=== PATIENT | male | born 1970 | race Caucasian/White ===

== ENCOUNTER 2019-06-04 15:13 | Outpatient (REF) | payer MEDICARE, BC, MEDICAID, SELFPAY ==
[2019-06-04 19:15] LABS: COMMENT (LAB VIEW ONLY) < 13.00 mg/dL
== END 2019-06-04 15:33 ==
LOC: LBN 15:13
PROVIDERS: PCP Internal Medicine; Visit Provider Internal Medicine
DX: I10 Essential (primary) hypertension (principal); E11.9 Type 2 diabetes mellitus without complications
CPT/HCPCS: 82043; 82570

== ENCOUNTER 2019-06-05 13:28 | Outpatient (REF) | payer MEDICARE, BC, MEDICAID, SELFPAY ==
[2019-06-05 14:01] LABS: HCT 47.9 % (40.0-50.0); HGB 15.8 g/dL (13.5-17.5)
[2019-06-05 14:38] LABS: Anion Gap 10.1 mmol/L (3-11); BUN 8 mg/dL (7-18); CO2 31.9 mmol/L (21.0-32.0); Calcium 8.7 mg/dL (8.5-10.1); Chloride 92 mmol/L (98-107); Cholesterol 141 mg/dL (50-200); Glucose 124 mg/dL (70-100); HDL Cholesterol 32 mg/dL (40-60); Magnesium 1.9 mg/dL (1.8-2.4); Potassium 4.1 mmol/L (3.5-5.1); Sodium 134 mmol/L (136-145); TSH 1.22 uIU/mL (0.36-3.74); Triglyceride 445 mg/dL (30-150)
[2019-06-05 15:01] LABS: LDL CHOLESTEROL 71 mg/dL (<100)
== END 2019-06-05 13:48 ==
LOC: LBN 13:28
PROVIDERS: PCP Internal Medicine; Visit Provider Internal Medicine
DX: E78.5 Hyperlipidemia, unspecified (principal); E11.9 Type 2 diabetes mellitus without complications; I42.9 Cardiomyopathy, unspecified; I10 Essential (primary) hypertension; E83.42 Hypomagnesemia; G47.33 Obstructive sleep apnea (adult) (pediatric); J98.9 Respiratory disorder, unspecified
CPT/HCPCS: 80048; 80061; 83721; 83735; 84443; 85014; 85018

== ENCOUNTER 2022-08-29 16:40 | Outpatient (REF) | payer MEDICARE, MEDICAID, SELFPAY ==
[2022-08-29 20:27] LABS: ALT 39 U/L (16-63); AST 28 U/L (15-37); Albumin 4.5 g/dL (3.4-5.0); Alkaline Phosphatase 109 U/L (46-116); Anion Gap 8.3 mmol/L (3-11); BUN 12 mg/dL (7-18); Bilirubin, Total 0.3 mg/dL (0.2-1.0); CO2 28.7 mmol/L (21.0-32.0); Calculated LDL 42 mg/dL (<100); Chloride 96 mmol/L (98-107); Cholesterol 137 mg/dL (<200); Glucose 137 mg/dL (74-106); HDL Cholesterol 40 mg/dL (40-60); Potassium 4.3 mmol/L (3.5-5.1); Sodium 133 mmol/L (136-145); TSH (W/Ref FT4) 1.56 uIU/mL (0.36-3.74); Total Protein 7.8 g/dL (6.4-8.2); Triglyceride 275 mg/dL (<150)
[2022-08-29 20:35] LABS: COMMENT (LAB VIEW ONLY) < 13.00 mg/dL
[2022-08-29 21:18] LABS: Hemoglobin A1C 6.6 % (<5.7)
== END 2022-08-29 16:41 | disposition home or self-care (01) ==
LOC: LBN 16:40
PROVIDERS: PCP Internal Medicine; Referring Provider Nurse Practitioner Adult Health; Visit Provider Nurse Practitioner Adult Health
DX: E11.9 Type 2 diabetes mellitus without complications (principal); E66.01 Morbid (severe) obesity due to excess calories; E78.5 Hyperlipidemia, unspecified; I10 Essential (primary) hypertension
CPT/HCPCS: 80053; 80061; 82043; 82570; 83036; 84443

== ENCOUNTER 2022-10-03 13:36 | Outpatient (REF) | payer MEDICARE, BC, MEDICAID, SELFPAY ==
[2022-10-03 15:43] LABS: Anion Gap 7.9 mmol/L (3-11); BUN 9 mg/dL (7-18); CO2 28.1 mmol/L (21.0-32.0); Calcium 8.9 mg/dL (8.5-10.1); Chloride 98 mmol/L (98-107); Glucose 111 mg/dL (74-106); NT-proBNP 29 pg/mL (<300); Potassium 3.9 mmol/L (3.5-5.1); Sodium 134 mmol/L (136-145)
== END 2022-10-03 13:37 | disposition home or self-care (01) ==
LOC: LBN 13:36
PROVIDERS: PCP Nurse Practitioner Adult Health; Referring Provider Nurse Practitioner Adult Health; Visit Provider Nurse Practitioner Adult Health
DX: G47.33 Obstructive sleep apnea (adult) (pediatric) (principal); R06.89 Other abnormalities of breathing; F32.89 Other specified depressive episodes; I42.8 Other cardiomyopathies
CPT/HCPCS: 80048; 83880

== ENCOUNTER 2022-12-12 11:12 | Emergency (ER) | payer MEDICARE, BC, MEDICAID, SELFPAY ==
[2022-12-12 11:32] VITALS: BP 136/75; PULSE 72; RESP 16; TEMP 36.8; O2SAT 96
[2022-12-12 12:02] VITALS: RESP 20
--- NOTE | 2022-12-12 12:15 | DI.RAD_ITS ---
Exam(s) XR LUMBAR SPINE COMPLETE EXAM: XR LUMBAR SPINE COMPLETE CLINICAL HISTORY: Back Pain. TECHNIQUE: 2D digital imaging was performed. Five views. COMPARISON: No exams were available for comparison FINDINGS: There is somewhat limited by patient body habitus. No evidence of fracture, spondylolysis or spondylolisthesis. The disc spaces are maintained. Endpla te osteophytes are present greater in the lower thoracic region. Facet degenerative changes are pres ent greatest at L4-5 and L5-S1. IMPRESSION: Degenerative changes. No acute abnormality. DATA REPOSITORY: RADIATION DOSE DELIVERED:
--- NOTE | 2022-12-12 12:15 | DI.RAD_ITS ---
Exam(s) XR PELVIS AP EXAM: XR PELVIS AP CLINICAL HISTORY: Pain. TECHNIQUE: 2D digital imaging was performed. COMPARISON: No exams were available for comparison FINDINGS: BONES: No acute fracture is present. No bony destructive lesion is seen. JOINTS: No dislocation present. No joint space narrowing is present. Mild acetabular spurring. SOFT TISSUE: Normal. IMPRESSION: Mild degenerative changes. No acute abnormality. DATA REPOSITORY: RADIATION DOSE DELIVERED:
--- NOTE | 2022-12-12 12:24 | ED.GENADUL_ITS ---
Discharge Plan Disposition Patient Disposition: Home Condition: Stable Discharge Details Clinical Impression: Acute myofascial strain of lumbar region, DDD (degenerative disc disease), lumbosacral Primary Care Provider: Lupe Olmedo ED Provider: Mary Min Home Meds and New Rx's Prescriptions: No Action ammonium lactate 12 % cream 1 applic TP BID Qty: 280 5RF Rx Instructions: apply thin film to both heels and lower shins twice a day semaglutide 3 mg tablet 3 mg PO DAILY Qty: 90 3RF simvastatin 10 mg tablet 10 mg PO DAILY Qty: 90 3RF Rx Instructions: to lower cholesterol glimepiride 2 mg tablet 2 mg PO DAILY Qty: 90 3RF furosemide 40 mg tablet 40 mg PO DAILY Qty: 90 3RF Jardiance 25 mg tablet 25 mg PO DAILY Qty: 90 3RF (DME) blood-glucose meter Kit 1 ea Miscellaneous DAILY Qty: 1 0RF Rx Instructions: Diabetes to maintain A1C less than 7 and to check daily mupirocin 2 % ointment 1 applic topical BID-TID Qty: 15 0RF Rx Instructions: May substitute with cream if less expensive; apply thin layer to skin lesions on abdomen until area/lesion resolved (avoid picking) bupropion HCl [Wellbutrin SR] 150 mg tablet sustained-release 12 hr 300 mg PO DAILY Patient Comments: Dr. Gray at [facility] topiramate [Topamax] 50 mg tablet 50 mg PO QAM clonazepam 0.5 MG tablet 0.5 mg PO 4-6XD Rx Instructions: 0.5mg up to qid and 0.25mg at HS ([facility] PRESCRIBES) olanzapine 20 MG tablet 20 mg PO BID Rx Instructions: [facility] PRESCRIBES polyethylene glycol 3350 [Miralax] 17 gram powder in packet 17 g PO DAILY 30 Days Qty: 255 11RF Rx Instructions: prn constipation topiramate [Topamax] 100 mg tablet 100 mg PO QHS Qty: 45 Rx Instructions: 0.5 tab in am and 1 tab in pm. [facility] PRESCRIBES Metamucil 3.4 gram/5.4 gram powder See Rx Instructions PO BID PRN (Reason: constipation) Qty: 660 11RF Rx Instructions: 2 Tblsp PO twice a day PRN; along with fluids to soften stool, prevent bleeding (DME) blood sugar diagnostic Strip 1 ea Miscellaneous DAILY Qty: 100 3RF Rx Instructions: E11.9 to maintain A1C less than 7 , test daily (DME) lancets [OneTouch UltraSoft Lancets] Misc 1 ea Miscellaneous DAILY Qty: 100 3RF Rx Instructions: E11.9 to maintain A1C less than 7 , test daily famotidine 40 mg tablet 20 mg PO BID Qty: 90 3RF lisinopril 40 mg tablet 40 mg PO DAILY Qty: 90 3RF Rx Instructions: to control blood pressure metformin 1,000 mg tablet 1,000 mg PO BID Qty: 180 3RF metoprolol succinate 50 mg tablet extended release 24 hr 50 mg PO BID Qty: 180 3RF Rx Instructions: To lower blood pressure potassium chloride 20 mEq tablet extended release See Rx Instructions .ROUTE .COMPLEX Qty: 90 3RF Dose Instruction: TAKE ONE TABLET BY MOUTH EVERY DAY Rx Instructions: TAKE ONE TABLET BY MOUTH EVERY DAY Discharge Instructions Instructions: Muscle Strain (ED) Additional Instructions: No evidence of broken bones on the x-rays. I do suspect a muscle strain. Alternate ice and heat. You may get lidocaine patches which you can obtain over the counter. Take the muscle relaxers as directed. Please take Tylenol or Ibuprofen with food every 4-6 hours as needed for pain and swelling. Follow up with primary care provider in 3-5 days. Return to ED sooner if any worsening or concerns. Increase oral fluids. Referrals: Lupe Olmedo RELAY REPAIRER [Primary Care Provider] - 3 days Medical Decision Making 52-year-old male with morbid obesity, hyperlipidemia and hypertension diabetes mellitus schizophrenia and cardiomyopathy presents to the ER with a chief complaint of bilateral hip and lower back pain which she reports has been ongoing for the last year. He did some heavy lifting yesterday which exacerbated his pain. He reports sharp stabbing pain to his bilateral flanks. He also reports some burning with urination. He reports some difficulty walking and having to use a walker which is unlike him. He normally takes Tylenol as needed for pain. Denies any saddle anesthesia numbness or tingling however he does have history of feet numbness when he lays down. No loss of bowel or bladder control. X-ray lumbar spine and pelvis ordered, Flexeril 10 mg lidocaine patch and urinalysis. X-rays are within normal limits. Urinalysis shows no evidence for UTI no leukocytes no nitrites. Patient feeling better after the Flexeril and lidocaine patch. Discharged with follow-up with PCP. Patient use walker upon discharge. This text was generated using Sensipassation system, please disregard any oddities of phrase or misspellings. Medical Records Medical records reviewed: Yes I reviewed the patient's medical records. Medical records narrative: Laboratory Tests Range/Units 12/12/22 13:29 Urine Color (Yellow) Straw Urine Clarity (Clear) Clear Urine pH (5-8) 5.5 Ur Specific [place] (1.005-1.025) <= 1.005 Urine Protein (Negative) mg/dL Negative Urine Ketones (Negative) mg/dL Negative Urine Blood (Negative) Negative Urine Nitrite (Negative) Negative Urine Bilirubin (Negative) Negative Urine Urobilinogen (Up to 0.2) mg/dL 0.2 Ur Leukocyte Esterase (Negative) Negative Urine Glucose (Negative) mg/dL 250 H HPI General Mode of arrival: ambulatory . Date/Time Provider Initiated Documentation: 12/12/22 12:08 . Limitations to Documentation: no limitations . Information obtained by: patient, family, RN notes reviewed and old records reviewed . HPI Narrative: 52-year-old male with morbid obesity, hyperlipidemia and hypertension diabetes mellitus schizophrenia and cardiomyopathy presents to the ER with a chief complaint of bilateral hip and lower back pain which she reports has been ongoing for the last year. He did some heavy lifting yesterday which exacerbated his pain. He reports sharp stabbing pain to his bilateral flanks. He also reports some burning with urination. He reports some difficulty walking and having to use a walker which is unlike him. He normally takes Tylenol as needed for pain. Denies any saddle anesthesia numbness or tingling however he does have history of feet numbness when he lays down. No loss of bowel or bladder control. Related Data Home Medications Medication Instructions Recorded Confirmed clonazepam 0.5 mg tablet 0.5 mg PO 4-6XD 11/10/12 12/12/22 olanzapine 20 mg tablet 20 mg PO BID 11/10/12 12/12/22 polyethylene glycol 3350 17 gram 17 g PO DAILY 30 days #255 grams 10/29/18 oral powder packet (Miralax) topiramate 100 mg tablet (Topamax) 100 mg PO QHS #45 tabs 01/21/19 10/03/22 topiramate 50 mg tablet (Topamax) 50 mg PO QAM 01/21/19 12/12/22 ammonium lactate 12 % topical cream 1 applic topical BID #280 grams 09/22/19 10/03/22 psyllium husk 3.4 gram/5.4 gram See Rx Instructions PO BID PRN 06/13/21 12/12/22 oral powder (Metamucil) constipation #660 grams blood sugar diagnostic #100 strips 04/26/22 12/12/22 lancets (OneTouch UltraSoft #100 ea 04/26/22 12/12/22 Lancets) famotidine 40 mg tablet 20 mg PO BID #90 tabs 08/01/22 12/12/22 lisinopril 40 mg tablet 40 mg PO DAILY #90 tab-caps 08/01/22 12/12/22 metformin 1,000 mg tablet 1,000 mg PO BID #180 tab-caps 08/01/22 12/12/22 metoprolol succinate 50 mg 50 mg PO BID #180 tabs 08/01/22 12/12/22 tablet,extended release 24 hr potassium chloride 20 mEq See Rx Instructions .Route 08/27/22 12/12/22 tablet,extended release .COMPLEX #90 tabs blood-glucose meter #1 ea 08/29/22 12/12/22 empagliflozin 25 mg tablet 25 mg PO DAILY #90 tabs 08/29/22 12/12/22 (Jardiance) furosemide 40 mg tablet 40 mg PO DAILY #90 tabs 08/29/22 12/12/22 glimepiride 2 mg tablet 2 mg PO DAILY #90 tabs 08/29/22 12/12/22 mupirocin 2 % topical ointment 1 applic topical BID-TID #15 grams 08/29/22 12/12/22 semaglutide 3 mg tablet 3 mg PO DAILY #90 tabs 08/29/22 10/03/22 simvastatin 10 mg tablet 10 mg PO DAILY #90 tab-caps 08/29/22 12/12/22 bupropion HCl 150 mg tablet,12 hr 300 mg PO DAILY 10/03/22 12/12/22 sustained-release (Wellbutrin SR) Previous Rx's Medication Instructions Recorded polyethylene glycol 3350 17 gram 17 g PO DAILY 30 days #255 grams 04/03/19 oral powder packet (Miralax) ammonium lactate 12 % topical cream 1 applic topical BID #280 grams 09/22/19 psyllium husk 3.4 gram/5.4 gram See Rx Instructions PO BID PRN 06/13/21 oral powder (Metamucil) constipation #660 grams blood sugar diagnostic #100 strips 04/26/22 lancets (OneTouch UltraSoft #100 ea 04/26/22 Lancets) famotidine 40 mg tablet 20 mg PO BID #90 tabs 08/01/22 lisinopril 40 mg tablet 40 mg PO DAILY #90 tab-caps 08/01/22 metformin 1,000 mg tablet 1,000 mg PO BID #180 tab-caps 08/01/22 metoprolol succinate 50 mg 50 mg PO BID #180 tabs 08/01/22 tablet,extended release 24 hr potassium chloride 20 mEq See Rx Instructions .Route 08/27/22 tablet,extended release .COMPLEX #90 tabs blood-glucose meter #1 ea 08/29/22 empagliflozin 25 mg tablet 25 mg PO DAILY #90 tabs 08/29/22 (Jardiance) furosemide 40 mg tablet 40 mg PO DAILY #90 tabs 08/29/22 glimepiride 2 mg tablet 2 mg PO DAILY #90 tabs 08/29/22 mupirocin 2 % topical ointment 1 applic topical BID-TID #15 grams 08/29/22 semaglutide 3 mg tablet 3 mg PO DAILY #90 tabs 08/29/22 simvastatin 10 mg tablet 10 mg PO DAILY #90 tab-caps 08/29/22 Allergies Allergy/AdvReac Type Severity Reaction Status Date / Time clozapine [From Clozaril] Allergy Severe dilated Verified 12/12/22 12:04 cardiomyopathy 30% 2001 General Stated Complaint: GenMedical SHREYAS: 3 Review of Systems All systems reviewed & are unremarkable except as noted in HPI and below Musculoskeletal Musculoskeletal: Reports as per HPI and Reports back pain PFSH All Active Problems (Updated 12/12/22 @ 14:17 by Mary Min NP) Acute myofascial strain of lumbar region (Acute) DDD (degenerative disc disease), lumbosacral (Acute) Cardiomyopathy (Chronic 12/27/00) Simple schizophrenia, chronic condition (Chronic 07/28/90) Paranoid type; social anxiety Obstructive sleep apnea syndrome (Acute 12/20/06) SLEEP Study 12/20/06 [facility]; also [facility], not using CPAP Morbid obesity (Acute 09/17/11) Hyperlipidemia (Acute 09/17/11) Essential hypertension (Acute 12/01/12) Diabetes mellitus (Chronic 07/29/97) 1998 onset, A1c 8.3 and multiple >6.6 10/2006; on insulin SUMMER 2006 UNTIL 2013 Chronic disease of respiratory system (Acute 05/29/01) RESTRICTIVE LUNG DIS Medical History Anal fissure (10/27/12) painful; ? 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) Peripheral venous insufficiency (02/23/09) Short of breath on exertion (09/17/11) Family History Other Lung cancer Social History Smoking/Tobacco Use Status: Former Tobacco Use Smoking risk assessment performed?: Yes Alcohol Intake: never Drug use: Never Substance use type: does not use Adopted: No Household members: family Housing: house Number of Children: 0 Communication Needs: Corrective Lenses current occupation: disabled Pets and animals: Yes Pets and animals: dog(s) How often do you talk on the phone with friends or family?: three or more times per week Panel score (0-1 are the most socially isolated patients): 1 What type of physical activity do you participate in: none Seatbelt use: always Drive intox or ride w/intox commercial collections driver: No Working smoke detector in home: Yes Fire extinguisher in home: Yes Carbon monox detector in home: Yes Do you feel safe at home: Yes Do you feel safe in your relationship?: Yes Exam Narrative Exam Narrative: Constitutional: Alert and oriented x3. Appears stated age. Obese body habitus. Head: Normocephalic, no trauma. Eyes: Pupils PERRL, Red reflex noted, EOM's intact. Eyelids symmetrical without lesions, discharge, or swelling. ENT: Bilateral TM's WNL, External ear normal to inspection, no mastoid TTP, swelling, or erythema, Nasal turbinates WNL, no nasal discharge. Normal dentition, Posterior pharynx WNL, no exudate. Chest: RRR, Normal S1, S2, distal pulses intact. Resp: Lungs clear to auscultation bilaterally, no wheezes, rales, or rhonchi. Abdomen: Soft, non-distended, Normoactive bowel sounds all 4 quads. Musculoskeletal: Normal gait, 5/5 strength to all four extremities. Skin: No suspicious rashes or lesions. Capillary refill less than 2 sec. Neurologic: Cranial nerves II-XII intact. Alert and oriented x 3. Motor: No deficits noted. Sensory: Intact bilaterally all 4 extremities. Reflexes: DTR's intact bilaterally.. Hematologic/Lymphatic: No ecchymosis, no lymphadenopathy. Course Vital Signs Vital signs: Vital Signs Temperature 36.8 C 12/12/22 11:32 Pulse 72 12/12/22 11:32 Respiratory Rate 16 12/12/22 11:32 Blood Pressure 136/75 12/12/22 11:32 Pulse Oximetry 96 12/12/22 11:32 Temperature 36.8 C 12/12/22 11:32 Temperature Source Skin 12/12/22 11:32 Pulse 72 12/12/22 11:32 Respiratory Rate 20 12/12/22 12:02 Respiratory Effort Normal, Non-Labored 12/12/22 12:02 Respiratory Depth Normal 12/12/22 12:02 Respiratory Pattern Normal 12/12/22 12:02 Blood Pressure 136/75 12/12/22 11:32 Blood Pressure Position Sitting 12/12/22 11:32 Pulse Oximetry 96 12/12/22 11:32 Oxygen Delivery Method Room Air 12/12/22 11:32 Oxygen Flow Rate 0 12/12/22 11:32 Pain Level 8 12/12/22 11:32
[2022-12-12] MEDS: Cyclobenzaprine 10 MG TAB PO (12:29)
[2022-12-12] MEDS: Lidocaine 5% Patch 1 PATCH TP (12:29)
[2022-12-12 13:50] LABS: Bilirubin Negative (Negative); Blood Negative (Negative); Clarity Clear (Clear); Glucose 250 mg/dL (Negative); Ketones Negative (Negative); Leukocyte Esterase Negative (Negative); Nitrite Negative (Negative); Specific Gravity <= 1.005 (1.005-1.025); Urobilinogen 0.2 mg/dL (Up to 0.2); pH 5.5 (5-8)
[2022-12-12] MEDS: Cyclobenzaprine 10 MG TAB, 3 TABS/BTL PO (14:40)
== END 2022-12-12 14:47 | disposition home or self-care (01) ==
PROVIDERS: Emergency Provider Registered Nurse Emergency; PCP Nurse Practitioner Adult Health
DX: M51.26 Other intervertebral disc displacement, lumbar region (principal); I10 Essential (primary) hypertension; E11.9 Type 2 diabetes mellitus without complications; Z79.4 Long term (current) use of insulin; E66.01 Morbid (severe) obesity due to excess calories
CPT/HCPCS: 82962; 99283; 72110; 72170; 81003

== ENCOUNTER 2023-10-24 05:11 | Outpatient (CLI) | payer MEDICARE, BC, SELFPAY ==
[2023-10-24 14:21] LABS: Anion Gap 6.6 mmol/L (3-11); BUN 9 mg/dL (7-18); CO2 26.4 mmol/L (21.0-32.0); Calcium 8.6 mg/dL (8.5-10.1); Calculated LDL 25 mg/dL (<100); Chloride 95 mmol/L (98-107); Cholesterol 82 mg/dL (<200); Estimated GFR 89.44 (mL/min/1.73m2); Glucose 106 mg/dL (74-106); HDL Cholesterol 36 mg/dL (40-60); Potassium 4.1 mmol/L (3.5-5.1); Sodium 128 mmol/L (136-145); Triglyceride 105 mg/dL (<150)
[2023-10-24 20:07] LABS: COMMENT (LAB VIEW ONLY) < 13.00 mg/dL
== END 2023-10-24 05:12 | disposition home or self-care (01) ==
LOC: LBO 05:11
PROVIDERS: PCP Nurse Practitioner Adult Health; Referring Provider Nurse Practitioner Adult Health; Visit Provider Nurse Practitioner Adult Health
DX: E11.9 Type 2 diabetes mellitus without complications (principal); I42.9 Cardiomyopathy, unspecified; E78.5 Hyperlipidemia, unspecified; E66.01 Morbid (severe) obesity due to excess calories
CPT/HCPCS: 36415; 80048; 80061; 82043; 82570; 83036

== ENCOUNTER 2023-11-11 06:01 | Outpatient (CLI) | payer MEDICARE, BC, SELFPAY ==
[2023-11-11 13:54] LABS: Anion Gap 9.4 mmol/L (3-11); BUN 6 mg/dL (7-18); CO2 27.6 mmol/L (21.0-32.0); CREATININE 0.8 mg/dL (0.70-1.30); Calcium 8.8 mg/dL (8.5-10.1); Chloride 92 mmol/L (98-107); Estimated GFR 105.17 (mL/min/1.73m2); Glucose 100 mg/dL (74-106); Potassium 4.1 mmol/L (3.5-5.1); Sodium 129 mmol/L (136-145); TSH (W/Ref FT4) 1.32 uIU/mL (0.36-3.74)
== END 2023-11-11 06:02 | disposition home or self-care (01) ==
LOC: LBO 06:01
PROVIDERS: PCP Nurse Practitioner Adult Health; Visit Provider Nurse Practitioner Adult Health
DX: E87.1 Hypo-osmolality and hyponatremia (principal); E11.9 Type 2 diabetes mellitus without complications; I10 Essential (primary) hypertension; E78.5 Hyperlipidemia, unspecified
CPT/HCPCS: 36415; 80048; 84443

== ENCOUNTER 2023-12-26 04:24 | Outpatient (CLI) | payer MEDICARE, BC, SELFPAY ==
[2023-12-26 13:42] LABS: Anion Gap 8.7 mmol/L (3-11); BUN 2 mg/dL (7-18); CO2 26.3 mmol/L (21.0-32.0); CREATININE 0.9 mg/dL (0.70-1.30); Calcium 8.7 mg/dL (8.5-10.1); Chloride 89 mmol/L (98-107); Estimated GFR 101.49 (mL/min/1.73m2); Glucose 110 mg/dL (74-106); Potassium 4.2 mmol/L (3.5-5.1)
[2023-12-26 13:48] LABS: Sodium 124 mmol/L (136-145)
== END 2023-12-26 04:25 | disposition home or self-care (01) ==
LOC: LBO 04:24
PROVIDERS: PCP Nurse Practitioner Adult Health; Visit Provider Nurse Practitioner Adult Health
DX: E87.1 Hypo-osmolality and hyponatremia (principal)
CPT/HCPCS: 36415; 80048

== ENCOUNTER 2023-12-26 14:14 | Emergency (ER) | payer MEDICARE, BC, MEDICAID, SELFPAY ==
[2023-12-26] VITALS (17 sets, daily range): BP systolic 130–151; BP diastolic 67–87; PULSE 71–86; RESP 14–20; TEMP 36.2; O2SAT 97–99
--- NOTE | 2023-12-26 14:15 | RT.EKG_ITS ---
APPROVED REPORT Exam: Resting ECG Reason for Exam: dizziness Patient Location: E HR:73 bpm ECG Measurements Heart Rate 73 AXIS GA 201 P 22 QRSd 118 QRS -46 QT 386 T 55 QTc 424 Conclusion Sinus rhythm...normal P axis, V-rate 60- 99 LAD, consider left anterior fascicular block...axis(240,-40), S>R II III aVF Normal sinus rhythm at a rate of 73 with interventricular conduction delay and first-degree AV block. T wave flattening in aVL. Left anterior fascicular block. No ST segment abnormalities. Compared to prior dated 15 years ago T wave inversion in aVL has resolved. First-degree AV block is new.
[2023-12-26 14:49] LABS: Abs Immature Grans 0.12 10^3/uL (0.0-0.06); Absolute Basophil Count 0.07 10^3/uL (0.0-0.2); Absolute Eosinophil Count 0.06 10^3/uL (0.0-0.7); Absolute Lymphocyte Count 1.75 10^3/uL (1.2-3.4); Absolute Neutrophil Count 5.08 10^3/uL (1.2-6.7); Basophils % 0.9 %; Eosinophils % 0.8 %; HCT 47.3 % (40.0-50.0); HGB 16.2 g/dL (13.5-17.5); Immature Grans % 1.5 %; Lymphocytes % 22.5 %; MCH 28.5 pg (27.0-33.0); MCHC 34.2 % (32.0-36.0); MCV 83 fL (80-95); MPV 7.6 fL (8.0-11.0); Neutrophils % 65.3 %; Platelet Count 307 10^3/uL (130-400); RBC 5.69 10^6/uL (4.36-5.78); RDW 13.3 % (11.8-14.1); RDW-SD 40.6 fL; WBC 7.78 10^3/uL (4.4-10.8)
--- NOTE | 2023-12-26 15:02 | ED.GENADUL_ITS ---
Discharge Plan Disposition Patient Disposition: Home Condition: Improving Discharge Details Chief Complaint: Dizzy/Sync Clinical Impression: Hyponatremia Primary Care Provider: Lupe Olmedo ED Provider: Enrique Saucedo Home Meds and New Rx's Prescriptions: No Action ammonium lactate 12 % cream 1 applic TP BID Qty: 280 5RF Rx Instructions: apply thin film to both heels and lower shins twice a day (DME) blood-glucose meter Kit 1 ea Miscellaneous DAILY Qty: 1 0RF Rx Instructions: Diabetes to maintain A1C less than 7 and to check daily rosuvastatin 5 mg tablet 5 mg PO DAILY Qty: 90 3RF Rx Instructions: Stop Simvastatin in favor of Rosuvastatin 04/2023 Metamucil 3.4 gram/5.4 gram powder See Rx Instructions PO BID PRN (Reason: constipation) Qty: 660 11RF Rx Instructions: 2 Tblsp PO twice a day PRN; along with fluids to soften stool, prevent bleeding (DME) blood sugar diagnostic Strip 1 ea Miscellaneous DAILY Qty: 100 3RF Rx Instructions: E11.9 to maintain A1C less than 7 , test daily (DME) lancets [OneTouch UltraSoft Lancets] Misc 1 ea Miscellaneous DAILY Qty: 100 3RF Rx Instructions: E11.9 to maintain A1C less than 7 , test daily Jardiance 25 mg tablet 25 mg PO DAILY Qty: 90 3RF famotidine 20 mg tablet 20 mg PO DAILY Qty: 90 3RF furosemide 40 mg tablet 40 mg PO DAILY Qty: 90 3RF lisinopril 40 mg tablet 40 mg PO DAILY Qty: 90 3RF Rx Instructions: to control blood pressure metformin 1,000 mg tablet 1,000 mg PO BID Qty: 180 3RF metoprolol succinate 50 mg tablet extended release 24 hr 50 mg PO BID Qty: 180 3RF Rx Instructions: To lower blood pressure potassium chloride 20 mEq tablet extended release See Rx Instructions .ROUTE .COMPLEX Qty: 90 3RF Dose Instruction: TAKE ONE TABLET BY MOUTH EVERY DAY Rx Instructions: TAKE ONE TABLET BY MOUTH EVERY DAY Rybelsus 3 mg tablet See Rx Instructions .ROUTE .COMPLEX Qty: 30 2RF Dose Instruction: TAKE 1 TABLET BY MOUTH DAILY Rx Instructions: TAKE 1 TABLET BY MOUTH DAILY clonazepam 0.5 mg tablet 0.5 mg PO QID Rx Instructions: ANXIETY topiramate [Topamax] 50 mg tablet 50 mg PO BID olanzapine 20 mg tablet 20 mg PO BID Rx Instructions: AUDREYKENISHA KEATINGCADEN bupropion HCl 300 mg tablet extended release 24 hr 300 mg PO QAM Qty: 30 0RF Rx Instructions: Dose decrease 10/2023 courtesy RX until pt returns to psychiatry Discharge Instructions Instructions: Hyponatremia (ED) Additional Instructions: Please follow-up with your primary care physician and your primary psychiatrist. Please return to the emergency department for any worsening symptoms HPI General Date/Time Provider Initiated Documentation: 12/26/23 14:15 . HPI Narrative: 53-year-old male history of schizophrenia, presents with family, referred in by primary care doctor for evaluation of hyponatremia, per family patient drinks a lot of water daily and has done so for some time. Patient was feeling slight dizziness and lightheadedness. Currently asymptomatic Related Data Home Medications Medication Instructions Recorded Confirmed ammonium lactate 12 % topical cream 1 applic topical BID #280 grams 09/22/19 12/26/23 psyllium husk 3.4 gram/5.4 gram See Rx Instructions PO BID PRN 06/13/21 12/26/23 oral powder (Metamucil) constipation #660 grams blood sugar diagnostic #100 strips 04/26/22 10/31/23 lancets (OneTouch UltraSoft #100 ea 04/26/22 10/31/23 Lancets) blood-glucose meter #1 ea 08/29/22 10/31/23 empagliflozin 25 mg tablet 25 mg PO DAILY #90 tabs 04/15/23 12/26/23 (Jardiance) famotidine 20 mg tablet 20 mg PO DAILY #90 tabs 04/15/23 12/26/23 furosemide 40 mg tablet 40 mg PO DAILY #90 tabs 04/15/23 12/26/23 lisinopril 40 mg tablet 40 mg PO DAILY #90 tab-caps 04/15/23 12/26/23 metformin 1,000 mg tablet 1,000 mg PO BID #180 tab-caps 04/15/23 12/26/23 metoprolol succinate 50 mg 50 mg PO BID #180 tabs 04/15/23 12/26/23 tablet,extended release 24 hr potassium chloride 20 mEq See Rx Instructions .Route 04/15/23 12/26/23 tablet,extended release .COMPLEX #90 tabs rosuvastatin 5 mg tablet 5 mg PO DAILY #90 tabs 05/03/23 12/26/23 semaglutide 3 mg tablet (Rybelsus) See Rx Instructions .Route 09/09/23 12/26/23 .COMPLEX #30 tabs clonazepam 0.5 mg tablet 0.5 mg PO QID 10/03/23 12/26/23 olanzapine 20 mg tablet 20 mg PO BID 10/03/23 12/26/23 topiramate 50 mg tablet (Topamax) 50 mg PO BID 10/03/23 12/26/23 bupropion HCl 300 mg 24 hr tablet, 300 mg PO QAM #30 tabs 11/07/23 12/26/23 extended release Previous Rx's Medication Instructions Recorded ammonium lactate 12 % topical cream 1 applic topical BID #280 grams 09/22/19 psyllium husk 3.4 gram/5.4 gram See Rx Instructions PO BID PRN 06/13/21 oral powder (Metamucil) constipation #660 grams blood sugar diagnostic #100 strips 04/26/22 lancets (OneTouch UltraSoft #100 ea 04/26/22 Lancets) blood-glucose meter #1 ea 08/29/22 empagliflozin 25 mg tablet 25 mg PO DAILY #90 tabs 04/15/23 (Jardiance) famotidine 20 mg tablet 20 mg PO DAILY #90 tabs 04/15/23 furosemide 40 mg tablet 40 mg PO DAILY #90 tabs 04/15/23 lisinopril 40 mg tablet 40 mg PO DAILY #90 tab-caps 04/15/23 metformin 1,000 mg tablet 1,000 mg PO BID #180 tab-caps 04/15/23 metoprolol succinate 50 mg 50 mg PO BID #180 tabs 04/15/23 tablet,extended release 24 hr potassium chloride 20 mEq See Rx Instructions .Route 04/15/23 tablet,extended release .COMPLEX #90 tabs rosuvastatin 5 mg tablet 5 mg PO DAILY #90 tabs 05/03/23 semaglutide 3 mg tablet (Rybelsus) See Rx Instructions .Route 09/09/23 .COMPLEX #30 tabs bupropion HCl 300 mg 24 hr tablet, 300 mg PO QAM #30 tabs 11/07/23 extended release Allergies Allergy/AdvReac Type Severity Reaction Status Date / Time clozapine [From Clozaril] Allergy Severe dilated Verified 12/26/23 14:24 cardiomyopathy 30% 2001 General Stated Complaint: Dizzy/Sync SHREYAS: 3 Review of Systems Narrative: Review of Systems Constitutional: negative Eyes: negative ENT: negative Cardiovascular: negative Respiratory: negative Gastrointestinal: negative : negative Musculoskeletal: negative Skin: negative Neurologic: negative Psych: negative Exam Narrative Exam Narrative: Physical Examination General: alert, awake, cooperative, resting comfortably, no acute distress HEENT: normocephalic, atraumatic; PERRL, EOM intact, conjunctiva normal; no nasal discharge; moist mucous membranes, oral and pharyngeal mucosa normal, tolerating secretions Neck: supple, trachea midline; full ROM Chest: normal to inspection Respiratory: normal respiratory effort, speaking in full sentences, clear to auscultation, no wheezing, rales or rhonchi Cardiac: regular rate, regular rhythm, S1S2 intact, no murmurs rubs or gallops GI: abdomen soft, non-tender, non-distended; no palpable mass or hepatosplenomegaly Skin: no lesions, rashes or trauma appreciated Neuro: AAOx3, normal speech, moving all extremities, no focal deficits Psych: Appropriate mood and affect Course Vital Signs Vital signs: Vital Signs Temperature 36.2 C L 12/26/23 14:17 Pulse 73 12/26/23 14:17 Respiratory Rate 14 12/26/23 14:17 Blood Pressure 151/87 H 12/26/23 14:17 Pulse Oximetry 98 12/26/23 14:17 Temperature 36.2 C L 12/26/23 14:17 Temperature Source Temporal Artery Scan 12/26/23 14:17 Pulse 73 12/26/23 14:17 Respiratory Rate 16 12/26/23 14:27 Respiratory Effort Normal 12/26/23 14:27 Respiratory Depth Normal 12/26/23 14:27 Respiratory Pattern Normal 12/26/23 14:27 Blood Pressure 151/87 H 12/26/23 14:17 Blood Pressure Position Sitting 12/26/23 14:17 Pulse Oximetry 98 12/26/23 14:17 Oxygen Delivery Method Room Air 12/26/23 14:17 Oxygen Flow Rate 0 12/26/23 14:17 Pain Level 0 12/26/23 14:17 Lab/Test Results Lab/Test Results: Laboratory Tests Range/Units 12/26/23 14:40 WBC (4.4-10.8) 10^3/uL 7.78 RBC (4.36-5.78) 10^6/uL 5.69 Hgb (13.5-17.5) g/dL 16.2 Hct (40.0-50.0) % 47.3 MCV (80-95) fL 83 MCH (27.0-33.0) pg 28.5 MCHC (32.0-36.0) % 34.2 RDW (11.8-14.1) % 13.3 Plt Count (130-400) 10^3/uL 307 MPV (8.0-11.0) fL 7.6 L Immature Gran % % 1.5 Neutrophils % % 65.3 Lymphocytes % % 22.5 Monocytes % % 9.0 Eosinophils % % 0.8 Basophils % % 0.9 Nucleated RBC % (0.0-0.3) % 0.0 Absolute Neutrophils (1.2-6.7) 10^3/uL 5.08 Absolute Lymphocytes (1.2-3.4) 10^3/uL 1.75 Absolute Monocytes (0.1-0.8) 10^3/uL 0.70 Absolute Eosinophils (0.0-0.7) 10^3/uL 0.06 Absolute Basophils (0.0-0.2) 10^3/uL 0.07 Medical Decision Making 53-year-old male history of schizophrenia brought in by family referred in by primary care doctor for evaluation of hyponatremia, patient was feeling lightheaded and slightly dizzy earlier today, now asymptomatic, denies symptomatology denies headache denies nausea denies vomiting, nonfocal examination, afebrile nontoxic hemodynamically stable. Alert interactive. Patient making dilute urine at bedside. Patient and family endorse patient drinking a lot of water daily for some time. High clinical suspicion for component of polydipsia. Upon reviewing patient's prior labs this appears to be chronic moderate hyponatremia given mild to no symptomatology currently aggressive correction not recommended. Will repeat labs to ensure accuracy, will obtain urine sample for urine sodium urine osmoles; counseled patient and family to cut back on free water intake and to consider adding electrolyte powder to water and/or salt to diet. Low suspicion for cerebral edema ACS PE aortic pathology or infectious process. No evidence of trauma or intoxication. Likely home with close follow-up and strict return precautions 15: 44 sodium other correcting from 124 earlier today to now 127 which is near patient's baseline. Given chronic moderate hyponatremia in asymptomatic patient patient be discharged home given strict return precautions and home care instructions specifically to decrease free water intake. Quality:SDOH Health Related Social Needs: No Data to Display PFSH All Active Problems (Updated 12/26/23 @ 15:45 by Enrique Saucedo MD) Hyponatremia (Acute) Hyponatremia (Acute ~09/2023) Cardiomyopathy (Chronic 12/27/00) Simple schizophrenia, chronic condition (Chronic 07/28/90) Paranoid type; social anxiety Obstructive sleep apnea syndrome (Acute 12/20/06) SLEEP Study 12/20/06 [facility] [place] [facility], not using CPAP Morbid obesity (Acute 09/17/11) Hyperlipidemia (Acute 09/17/11) Essential hypertension (Acute 12/01/12) Diabetes mellitus (Chronic 07/29/97) 1998 onset, A1c 8.3 and multiple >6.6 10/2006; on insulin SUMMER 2006 UNTIL 2013 Chronic disease of respiratory system (Acute 05/29/01) RESTRICTIVE LUNG DIS Medical History Leg weakness, bilateral BMI 50.0-59.9, adult 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 perianal abscess Family History Other Lung cancer Social History Smoking/Tobacco Use Status: Former Tobacco Use Smoking risk assessment performed?: Yes Alcohol Intake: never Drug use: Never Substance use type: does not use Adopted: No Household members: family Housing: house Number of Children: 0 Communication Needs: Corrective Lenses current occupation: disabled Pets and animals: Yes Pets and animals: dog(s) How often do you talk on the phone with friends or family?: three or more times per week Panel score (0-1 are the most socially isolated patients): 1 What type of physical activity do you participate in: none Seatbelt use: always Drive intox or ride 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
[2023-12-26 15:03] LABS: INR 1.1 (0.9-1.1); PTT Activated 27.4 sec (23.6-32.8); Prothrombin Time 11.2 sec (9.1-11.1)
[2023-12-26 15:13] LABS: ALT 51 U/L (16-63); AST 18 U/L (15-37); Alkaline Phosphatase 112 U/L (46-116); Anion Gap 9.3 mmol/L (3-11); BUN 3 mg/dL (7-18); Bilirubin, Total 0.5 mg/dL (0.2-1.0); CO2 26.7 mmol/L (21.0-32.0); Calcium 8.6 mg/dL (8.5-10.1); Chloride 91 mmol/L (98-107); Estimated GFR 89.44 (mL/min/1.73m2); Glucose 110 mg/dL (74-106); Magnesium 1.8 mg/dL (1.8-2.4); Potassium 3.8 mmol/L (3.5-5.1); Sodium 127 mmol/L (136-145); Total Protein 7.4 g/dL (6.4-8.2)
[2023-12-26 15:16] LABS: NT-proBNP 72 pg/mL (<300); Troponin I < 50 ng/L (< or =60)
[2023-12-26 15:19] LABS: Sodium, Urine 9 mmol/L
[2023-12-26 15:23] LABS: Creatinine,Urine < 13.0 mg/dL
[2023-12-26 22:14] LABS: Osmolality, Urine 56 mOsm/kg (150-1150)
== END 2023-12-26 15:58 | disposition home or self-care (01) ==
PROVIDERS: Emergency Provider Emergency Medicine; PCP Nurse Practitioner Adult Health
DX: E87.1 Hypo-osmolality and hyponatremia; F20.9 Schizophrenia, unspecified; Z79.899 Other long term (current) drug therapy; E11.9 Type 2 diabetes mellitus without complications; E78.5 Hyperlipidemia, unspecified; I10 Essential (primary) hypertension; E66.01 Morbid (severe) obesity due to excess calories; Z79.84 Long term (current) use of oral hypoglycemic drugs; Z68.43 Body mass index [BMI] 50.0-59.9, adult
CPT/HCPCS: 36415; 80048; 80053; 81025; 83935; 93005; 99284; 82565; 83735; 83880; 84300; 84443; 84484; 85025; 85610; 85730; 93010

== ENCOUNTER 2024-01-10 02:44 | Outpatient (CLI) | payer MEDICARE, BC, SELFPAY ==
[2024-01-10 15:57] LABS: Anion Gap 10.9 mmol/L (3-11); BUN 7 mg/dL (7-18); CO2 24.1 mmol/L (21.0-32.0); CREATININE 0.9 mg/dL (0.70-1.30); Calcium 8.9 mg/dL (8.5-10.1); Chloride 92 mmol/L (98-107); Estimated GFR 100.86 (mL/min/1.73m2); Glucose 102 mg/dL (74-106); Potassium 3.9 mmol/L (3.5-5.1); Sodium 127 mmol/L (136-145)
== END 2024-01-10 02:45 | disposition home or self-care (01) ==
LOC: LBO 02:45
PROVIDERS: PCP Nurse Practitioner Adult Health; Referring Provider Nurse Practitioner Adult Health; Visit Provider Nurse Practitioner Adult Health
DX: E87.1 Hypo-osmolality and hyponatremia (principal)
CPT/HCPCS: 36415; 80048

== ENCOUNTER 2024-01-26 17:40 | Observation (INO) | payer MEDICARE, BC, MEDICAID, SELFPAY ==
[2024-01-26] VITALS (33 sets, daily range): BP systolic 102–128; BP diastolic 52–71; PULSE 91–104; RESP 14–28; TEMP 37.3; O2SAT 93–97
--- NOTE | 2024-01-26 17:45 | RT.EKG_ITS ---
APPROVED REPORT Exam: Resting ECG Reason for Exam: CHF Patient Location: E HR:98 bpm ECG Measurements Heart Rate 98 AXIS WY 221 P 36 QRSd 105 QRS -84 QT 335 T 68 QTc 427 Conclusion Sinus rhythm...normal P axis, V-rate 60- 99 Prolonged WY interval...WY >205, V-rate 91-120 Left anterior fascicular block...axis(240,-40), init forces inf Consider anterior infarct...Q >30mS in V2-V5 sinus rhythm, left axis, no acute ischemic changes
--- NOTE | 2024-01-26 18:15 | DI.CT_ITS ---
Exam(s) CT HEAD WO EXAM: CT HEAD WO CLINICAL HISTORY: confusion. TECHNIQUE: Imaging Protocol: Axial computed tomography images with coronal and sagittal reformatted images were created and reviewed COMPARISON: No exams were available for comparison FINDINGS: There are no skull fractures. There is no fluid in the visualized paranasal sinuses. There is no evidence of intracranial hemorrhage, mass effect, or shift of midline structures. There are no extra-axial fluid collections. The ventricles are not enlarged or shifted and there is no blo od within the ventricular system nor within the basal cisterns. IMPRESSION: No acute intracranial findings on this noninfused CT scan of the brain. RADIATION DOSE DELIVERED: 842.09mGy.cm Total DLP DATA REPOSITORY: All CT scans at this facility are submitted to the National Radiology Data Registry (NRDR) Dose Index Registry (DIR) with the [employer] ([employer]). RADIATION OPTIMIZATION: All CT scans at this facility use at least one of these dose optimization te chniques: automated exposure control; mA and/or kV adjustment per patient size (includes targeted exa ms where dose is matched to clinical indication); or iterative reconstruction.
--- NOTE | 2024-01-26 18:30 | DI.CT_ITS ---
Exam(s) CT CHEST/ABD/PEL W EXAM: CT CHEST/ABD/PEL W CLINICAL HISTORY: confusion, abd pain. TECHNIQUE: Imaging Protocol: Axial computed tomography images with coronal and sagittal reformatted images were created and reviewed CONTRAST MATERIAL: Intravenous: Omnipaque 350 Contrast volume:100 ml Oral: None COMPARISON: No exams were available for comparison FINDINGS: CHEST: LUNGS: No infiltrates nor pleural effusions.. MEDIASTINUM: There is no hilar nor mediastinal adenopathy. Visualized thyroid unremarkable. CARDIAC: Heart size is normal. There is no pericardial effusion.Caliber of the thoracic aorta is wit hin normal limits. OSSEOUS: No significant osseous lesions.. ABDOMEN: LIVER: There are no focal hepatic lesions nor dilatation of intrahepatic ducts. GALLBLADDER/BILIARY: Gallbladder contains subtle densities and is grossly edematous consistent with a cute cholecystitis. CBD is not dilated. PANCREAS: No evidence of pancreatic mass nor dilatation of the pancreatic duct. SPLEEN: Spleen is not enlarged. There are no intrasplenic lesions. Splenic and portal veins are alfredo nt. ADRENALS: There are no significant adrenal masses. KIDNEYS: No calculi nor hydronephrosis. No solid renal masses. No cysts evident. ABDOMINAL AORTA: Abdominal aorta is not enlarged. LYMPH NODES: There is no retroperitoneal nor paraaortic adenopathy. ABDOMINAL WALL: No evidence of significant anterior abdominal wall nor inguinal hernia. GI: There is no evidence of bowel obstruction. PELVIS: LYMPH NODES: There is no intrapelvic nor inguinal adenopathy. GI: No evidence of appendicitis.No evidence of sigmoid diverticulitis. URINARY BLADDER: Bladder is distended. REPRODUCTIVE: Prostate size upper normal. Seminal vesicles unremarkable. OSSEOUS: No fractures. No lytic nor blastic bone lesions identified. IMPRESSION: 1. Findings are consistent with severe acute cholecystitis. Ultrasound and surgical consultation rec ommended. 2. There is distention of the urinary bladder. Prostate size is upper normal. There are hydronephro sis nor hydroureter 3. Other findings as above. RADIATION DOSE DELIVERED: 2,194.54mGy.cm Total DLP DATA REPOSITORY: All CT scans at this facility are submitted to the National Radiology Data Registry (NRDR) Dose Index Registry (DIR) with the [employer] (ACR). RADIATION OPTIMIZATION: All CT scans at this facility use at least one of these dose optimization te chniques: automated exposure control; mA and/or kV adjustment per patient size (includes targeted exa ms where dose is matched to clinical indication); or iterative reconstruction.
[2024-01-26] MEDS: Omnipaque 350 MG/ML 100 ML BTL IJ (18:53)
[2024-01-26] MEDS: Normal Saline Flush 10 ML SYR IVP (18:54)
[2024-01-26] MEDS: Normal Saline - Diluent 50 ML VIAL IJ (18:55)
[2024-01-26 19:05] LABS: Abs Immature Grans 0.09 10^3/uL (0.0-0.06); Absolute Eosinophil Count 0.03 10^3/uL (0.0-0.7); Absolute Monocyte Count 1.11 10^3/uL (0.1-0.8); Absolute Neutrophil Count 15.15 10^3/uL (1.2-6.7); Basophils % 0.4 %; Eosinophils % 0.2 %; HCT 44.8 % (40.0-50.0); HGB 16.3 g/dL (13.5-17.5); Immature Grans % 0.5 %; Lymphocytes % 3.5 %; MCH 29.3 pg (27.0-33.0); MCHC 36.4 % (32.0-36.0); MCV 81 fL (80-95); MPV 7.8 fL (8.0-11.0); Monocytes % 6.5 %; Neutrophils % 88.9 %; Platelet Count 258 10^3/uL (130-400); RBC 5.56 10^6/uL (4.36-5.78); RDW 12.8 % (11.8-14.1); RDW-SD 37.6 fL; WBC 17.04 10^3/uL (4.4-10.8)
[2024-01-26 19:06] LABS: Absolute Basophil Count 0.07 10^3/uL (0.0-0.2)
[2024-01-26 19:18] LABS: Ammonia 24 umol/L (11-32)
[2024-01-26 19:25] LABS: ALT 33 U/L (16-63); AST 17 U/L (15-37); Albumin 3.8 g/dL (3.4-5.0); Alkaline Phosphatase 78 U/L (46-116); Anion Gap 10.3 mmol/L (3-11); BUN 5 mg/dL (7-18); Bilirubin, Total 0.79 mg/dL (0.2-1.0); CO2 23.7 mmol/L (21.0-32.0); CREATININE 0.9 mg/dL (0.70-1.30); Calcium 8.9 mg/dL (8.5-10.1); Chloride 89 mmol/L (98-107); Estimated GFR 100.86 (mL/min/1.73m2); Glucose 120 mg/dL (74-106); Potassium 3.7 mmol/L (3.5-5.1); Total Protein 7.5 g/dL (6.4-8.2); Troponin I < 50 ng/L (< or =60)
[2024-01-26 19:26] LABS: Sodium 123 mmol/L (136-145)
[2024-01-26 19:33] LABS: Magnesium 1.6 mg/dL (1.8-2.4)
[2024-01-26 19:34] LABS: ETHANOL BLOOD < 3.0 mg/dL (<10)
[2024-01-26 19:48] LABS: Bilirubin Negative (Negative); Blood Negative (Negative); Clarity Clear (Clear); Glucose 500 mg/dL (Negative); Ketones Negative (Negative); Leukocyte Esterase Negative (Negative); Nitrite Negative (Negative); Urobilinogen 0.2 mg/dL (Up to 0.2)
[2024-01-26 20:03] LABS: *AMPHETAMINES SCREEN URINE Negative (Negative); *BARBITURATES SCREEN URINE Negative (Negative); *BENZODIAZEPINES SCREEN URINE Negative (Negative); Cannabinoids THC Negative (Negative); Cocaine Screen,Urine Negative (Negative); METHADONE URINE SCREEN Negative (Negative); OPIATES URINE SCREEN Negative (Negative); Tricyclic Antidepressants Negative (Negative)
[2024-01-26] MEDS: Normal Saline 500 ML IV (20:29)
--- NOTE | 2024-01-26 20:29 | DI.VRAD_ITS ---
PROCEDURE INFORMATION: Exam: CT Head Without Contrast Exam date and time: 01/26/2024 6:59 PM Age: 54 years old Clinical indication: Other: Confusion TECHNIQUE: Imaging protocol: Computed tomography of the head without contrast. COMPARISON: No relevant prior studies available. FINDINGS: Brain: Normal. No hemorrhage. Unremarkable white matter. No mass effect. Cerebral ventricles: No ventriculomegaly. Paranasal sinuses: Visualized sinuses are unremarkable. No fluid levels. Mastoid air cells: Visualized mastoid air cells are well aerated. Bones: Unremarkable. No acute fracture. Soft tissues: Unremarkable. IMPRESSION: No evidence for acute intracranial abnormality. Dictated and Authenticated by: Yoly Eric MD. Ordering:LUNA Clement MD
--- NOTE | 2024-01-26 20:41 | DI.VRAD_ITS ---
PROCEDURE INFORMATION: Exam: CT Chest With Contrast; Diagnostic Exam date and time: 01/26/2024 7:06 PM Age: 54 years old Clinical indication: Abdominal pain; Epigastric; Patient HX: Abd pain TECHNIQUE: Imaging protocol: Diagnostic computed tomography of the chest with contrast. 3D rendering (Not supervised by radiologist): MIP and/or 3D reconstructed images were created by the technologist. COMPARISON: No relevant prior studies available. FINDINGS: Thyroid: Thyroid gland partially excluded from view but grossly unremarkable through its visualized portion. Lungs: Minimal dependent atelectasis. No pulmonary consolidation. Pleural spaces: Trace bilateral pleural fluid. No pneumothorax. Heart: Normal-sized heart. Lymph nodes: No pathologically enlarged mediastinal or hilar lymph nodes. Vasculature: No thoracic aortic aneurysm or dissection. Bones/joints: No acute fracture seen among the bones of the chest. Spinal degenerative change with bulky osteophytes flowing along the anterior thoracic margin. Soft tissues: No gross soft tissue mass or fluid collection seen in the chest wall. IMPRESSION: Trace bilateral pleural fluid. PROCEDURE INFORMATION: Exam: CT Abdomen And Pelvis With Contrast Exam date and time: 01/26/2024 7:06 PM Age: 54 years old Clinical indication: Abdominal pain; Epigastric; Patient HX: Abd pain TECHNIQUE: Imaging protocol: Computed tomography of the abdomen and pelvis with contrast. 3D rendering (Not supervised by radiologist): MIP and/or 3D reconstructed images were created by the technologist. COMPARISON: CR XR PELVIS AP 12/12/2022 1:05 PM FINDINGS: Diaphragm: Prominent elevation of the right hemidiaphragm. Liver: Normal appearing liver. Gallbladder and biliary ducts: Prominent gallbladder distension. Gallbladder wall thickening with prominent pericholecystic inflammatory change and fluid. Heterogeneous density in the gallbladder lumen suspicious for stones or sludge. No biliary dilatation. Pancreas: Normal appearing pancreas. Spleen: Normal appearing spleen. Adrenal glands: Normal appearing adrenal glands. Kidneys and ureters: Normal appearing kidneys. No hydronephrosis. Stomach and bowel: No oral contrast. Stomach moderately distended with ingested material and fluid. 5.0 cm x 4.0 cm proximal duodenal diverticulum, image 66 of series 4. No small bowel dilatation to suggest obstruction. Normal-appearing colon. No evidence of diverticulitis or colitis. Appendix: Normal appendix. Intraperitoneal space: No gross ascites or free air. Vasculature: Normal caliber abdominal aorta. Lymph nodes: No pathologically enlarged mesenteric, retroperitoneal, or pelvic sidewall lymph nodes. Urinary bladder: Urinary bladder prominently distended measuring 17 cm x 14 cm x 14 cm. Reproductive: Normal-appearing prostate gland and seminal vesicles. Bones/joints: No acute fracture seen among the bones of the abdomen or pelvis. Spinal degenerative change with Schmorl's nodes, anterior osteophytes, and facet arthrosis at several levels. Soft tissues: Diastasis recti. No significant ventral or inguinal hernia. IMPRESSION: 1. Severe acute cholecystitis. Surgery consultation recommended. 2. Prominent distention of the urinary bladder. This appearance may represent a normal unusually full bladder; however, correlation with micturition history is recommended to exclude delayed bladder emptying, urinary retention, or bladder outlet obstruction. Dictated and Authenticated by: Cj Mijares MD. Ordering:LUNA Clement MD
[2024-01-26] MEDS: PIPERACILLIN/TAZO 3.375 GM in Normal Saline 50 ML IVPB (21:39)
--- NOTE | 2024-01-26 21:53 | SCONE_ITS ---
Date of service: 01/26/24 Time of Service: 21:54 Assessment and Plan Assessment and plan (1) Cholecystitis: Status: Acute Assessment and plan: 54-year-old man who is morbidly obese with poorly controlled diabetes who now presents with acute cholecystitis. He is hemodynamically stable. His mental status changes might be from sepsis and/or his underlying cognitive and mental conditions; unlikely related to a chronic hyponatremia greater than 120. There is report of cardiomyopathy and/or some degree of heart failure however he has a recent echo with good ejection fraction. His hyponatremia of 123 is acute on chronic hyponatremia in the high 120s. He has been hyponatremic dating back as far as 5+ years ago. I suspect this is a side effect of medications. Certainly the acute decrease of 123 is probably secondary to his ongoing infection and may be related to poor blood sugar control affecting osmolarity. He has a number of reasons to have an acute decrease in his sodium but it should be recognized that he has currently been living 127?129 it would seem. His bilirubin and his alk phos are normal. He has a leukocytosis of 17 with a shift. Overall plan: IV antibiotics N.p.o. but he can take all of his oral psych medications Insulin sliding scale Laparoscopic cholecystectomy tomorrow History of Present Illness Narrative: I was called by the ED to consult on this patient for severe cholecystitis. By report, the patient is a 54-year-old man who is encephalopathic and is significantly schizophrenic and who has heart failure and diabetes and lives with his mother who takes care of him. Reportedly she brought him in because he has been having abdominal pain for the last week or so and it is not getting any better and he was having mental status changes(though unclear what his baseline is). 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) Paranoid type; social anxiety Obstructive sleep apnea syndrome (Acute 12/20/06) SLEEP Study 12/20/06 [facility] [place]; also [facility], not using CPAP Morbid obesity (Acute 09/17/11) Hyperlipidemia (Acute 02/20/12) Essential hypertension (Acute 12/01/12) Diabetes mellitus (Chronic 07/29/97) 1998 onset, A1c 8.3 and multiple >6.6 10/2006; on insulin SUMMER 2006 UNTIL 2013 Chronic disease of respiratory system (Acute 05/29/01) RESTRICTIVE LUNG DIS Medical History Leg weakness, bilateral BMI 50.0-59.9, adult 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 perianal abscess Family History Other Lung cancer Social History Smoking/Tobacco Use Status: Former Tobacco Use Smoking risk assessment performed?: Yes Alcohol Intake: never Drug use: Never Substance use type: does not use Adopted: No Household members: family Housing: house Number of Children: 0 Communication Needs: Corrective Lenses current occupation: disabled Pets and animals: Yes Pets and animals: dog(s) How often do you talk on the phone with friends or family?: three or more times per week Panel score (0-1 are the most socially isolated patients): 1 What type of physical activity do you participate in: none Seatbelt use: always Drive intox or ride w/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 Working smoke detector in home: Yes Fire extinguisher in home: Yes Carbon monox detector in home: Yes Do you feel safe at home: Yes Do you feel safe in your relationship?: Yes Exam Narrative Exam Narrative: Per report: Hemodynamically stable Obese Tender in the right upper quadrant Results Last Vital Signs Temp 99.1 F 01/26/24 17:43 Pulse 95 H 01/26/24 21:31 Resp 20 01/26/24 21:31 BP 116/64 01/26/24 21:31 Pulse Ox 96 01/26/24 21:31 Labs 01/26/24 18:40 01/26/24 18:40 Labs: Laboratory Results - last 24 hr 06/01/26/24 01/26/24 18:35 18:40 18:43 WBC Cancelled 17.04 H RBC Cancelled 5.56 Hgb Cancelled 16.3 Hct Cancelled 44.8 MCV Cancelled 81 MCH Cancelled 29.3 MCHC Cancelled 36.4 H RDW Cancelled 12.8 Plt Count Cancelled 258 MPV Cancelled 7.8 L Immature Gran % Cancelled 0.5 Neutrophils % Cancelled 88.9 Band Neutrophils % Cancelled Lymphocytes % Cancelled 3.5 Atypical Lymphs % Cancelled Monocytes % Cancelled 6.5 Eosinophils % Cancelled 0.2 Basophils % Cancelled 0.4 Metamyelocytes % Cancelled Myelocytes % Cancelled Promyelocytes % Cancelled Other Cells % Cancelled Nucleated RBC % Cancelled 0.0 Absolute Neutrophils Cancelled 15.15 H Absolute Lymphocytes Cancelled 0.60 L Absolute Monocytes Cancelled 1.11 H Absolute Eosinophils Cancelled 0.03 Absolute Basophils Cancelled 0.07 RBC Morphology Cancelled Polychromasia Cancelled Hypochromasia Cancelled Poikilocytosis Cancelled Basophilic Stippling Cancelled Anisocytosis Cancelled Microcytosis Cancelled Macrocytosis Cancelled Spherocytes Cancelled Tear Drop Cells Cancelled Ovalocytes Cancelled Stomatocytes Cancelled [place] Bodies Cancelled Terrell Cells/Echinocytes Cancelled Acanthocytes (Spur) Cancelled Schistocytes Cancelled Sodium 123 L* Potassium 3.7 Chloride 89 L Carbon Dioxide 23.7 Anion Gap 10.3 BUN 5 L Creatinine 0.9 Est GFR (CKD-EPI 2020) 100.86 Glucose 120 H Calcium 8.9 Magnesium 1.6 L Total Bilirubin 0.79 AST 17 ALT 33 Alkaline Phosphatase 78 Ammonia 24 Troponin I < 50 Total Protein 7.5 Albumin 3.8 TSH 0.70 Urine Color Urine Clarity Urine pH Ur Specific [place] Urine Protein Urine Ketones Urine Blood Urine Nitrite Urine Bilirubin Urine Urobilinogen Ur Leukocyte Esterase Urine Glucose Urine Opiates Screen Urine Methadone Screen Ur Barbiturates Screen Ur Tricyclics Screen Ur Amphetamines Screen U Benzodiazepines Scrn Urine Cocaine Screen Ur THC Screen Ethyl Alcohol < 3.0 01/26/24 19:30 WBC RBC Hgb Hct MCV MCH MCHC RDW Plt Count MPV Immature Gran % Neutrophils % Band Neutrophils % Lymphocytes % Atypical Lymphs % Monocytes % Eosinophils % Basophils % Metamyelocytes % Myelocytes % Promyelocytes % Other Cells % Nucleated RBC % Absolute Neutrophils Absolute Lymphocytes Absolute Monocytes Absolute Eosinophils Absolute Basophils RBC Morphology Polychromasia Hypochromasia Poikilocytosis Basophilic Stippling Anisocytosis Microcytosis Macrocytosis Spherocytes Tear Drop Cells Ovalocytes Stomatocytes [place] Bodies [place] Cells/Echinocytes Acanthocytes (Spur) Schistocytes Sodium Potassium Chloride Carbon Dioxide Anion Gap BUN Creatinine Est GFR (CKD-EPI 2020) Glucose Calcium Magnesium Total Bilirubin AST ALT Alkaline Phosphatase Ammonia Troponin I Total Protein Albumin TSH Urine Color Yellow Urine Clarity Clear Urine pH 7.0 Ur Specific [place] 1.010 Urine Protein Negative Urine Ketones Negative Urine Blood Negative Urine Nitrite Negative Urine Bilirubin Negative Urine Urobilinogen 0.2 Ur Leukocyte Esterase Negative Urine Glucose 500 H Urine Opiates Screen Negative Urine Methadone Screen Negative Ur Barbiturates Screen Negative Ur Tricyclics Screen Negative Ur Amphetamines Screen Negative U Benzodiazepines Scrn Negative Urine Cocaine Screen Negative Ur THC Screen Negative Ethyl Alcohol
[2024-01-26] MEDS: ACETAMINOPHEN 1,000 MG/100 ML BTL 400 MG IVPB (22:25)
[2024-01-26] MEDS: Heparin 5,000 UNITS/ML VIAL 5000 UNITS SC (22:25)
--- NOTE | 2024-01-26 23:27 | ED.GENADUL_ITS ---
Discharge Plan Disposition Patient Disposition: Admit to [facility] Condition: Serious Discharge Details Clinical Impression: Diabetes mellitus, Cholecystitis, Hyponatremia, Simple schizophrenia, chronic condition Admit Date/Time: 01/26/24 21:53 Admit Provider: Cameron Montgomery Attending Provider: Cameron Montgomery Primary Care Provider: Lupe Olmedo ED Provider: Racquel Santos General Date/Time Provider Initiated Documentation: 01/26/24 17:47 . HPI Narrative: This 54-year-old male with history of schizophrenia, diabetes, hypertension, hyperlipidemia, sleep apnea presents with report of confusion and shuffling gait. Patient has had similar symptoms in the past but been transient with hyponatremia. He drinks lots of water and Coca-Cola daily but has been trying to decrease the amount of fluids secondary to your recent diagnosis of hyponatremia. He also states has been having some abdominal pain with nausea. Mother states he has been noncompliant with his antipsychotics as well. Patient denies any vomiting or diarrhea. He denies known trauma. He denies any alcohol consumption. He denies any illicit substance use. Denies fever or chills. Related Data Home Medications Medication Instructions Recorded Confirmed ammonium lactate 12 % topical cream 1 applic topical BID #280 grams 09/22/19 psyllium husk 3.4 gram/5.4 gram See Rx Instructions PO BID PRN 06/13/21 01/26/24 oral powder (Metamucil) constipation #660 grams blood sugar diagnostic #100 strips 04/26/22 01/26/24 lancets (OneTouch UltraSoft #100 ea 04/26/22 01/26/24 Lancets) blood-glucose meter #1 ea 08/29/22 01/26/24 empagliflozin 25 mg tablet 25 mg PO DAILY #90 tabs 04/15/23 01/26/24 (Jardiance) famotidine 20 mg tablet 20 mg PO DAILY #90 tabs 04/15/23 01/26/24 furosemide 40 mg tablet 40 mg PO DAILY #90 tabs 04/15/23 01/26/24 lisinopril 40 mg tablet 40 mg PO DAILY #90 tab-caps 04/15/23 01/26/24 metformin 1,000 mg tablet 1,000 mg PO BID #180 tab-caps 04/15/23 01/26/24 metoprolol succinate 50 mg 50 mg PO BID #180 tabs 04/15/23 01/26/24 tablet,extended release 24 hr potassium chloride 20 mEq See Rx Instructions .Route 04/15/23 01/26/24 tablet,extended release .COMPLEX #90 tabs rosuvastatin 5 mg tablet 5 mg PO DAILY #90 tabs 05/03/23 01/26/24 clonazepam 0.5 mg tablet 0.5 mg PO QID 10/03/23 01/26/24 olanzapine 20 mg tablet 20 mg PO BID 10/03/23 01/26/24 topiramate 50 mg tablet (Topamax) 50 mg PO BID 10/03/23 01/26/24 bupropion HCl 300 mg 24 hr tablet, 300 mg PO QAM #30 tabs 11/07/23 01/26/24 extended release semaglutide 3 mg tablet (Rybelsus) 3 mg PO DAILY 12/31/23 01/26/24 Previous Rx's Medication Instructions Recorded ammonium lactate 12 % topical cream 1 applic topical BID #280 grams 09/22/19 psyllium husk 3.4 gram/5.4 gram See Rx Instructions PO BID PRN 06/13/21 oral powder (Metamucil) constipation #660 grams blood sugar diagnostic #100 strips 04/26/22 lancets (OneTouch UltraSoft #100 ea 04/26/22 Lancets) blood-glucose meter #1 ea 08/29/22 empagliflozin 25 mg tablet 25 mg PO DAILY #90 tabs 04/15/23 (Jardiance) famotidine 20 mg tablet 20 mg PO DAILY #90 tabs 04/15/23 furosemide 40 mg tablet 40 mg PO DAILY #90 tabs 04/15/23 lisinopril 40 mg tablet 40 mg PO DAILY #90 tab-caps 04/15/23 metformin 1,000 mg tablet 1,000 mg PO BID #180 tab-caps 04/15/23 metoprolol succinate 50 mg 50 mg PO BID #180 tabs 04/15/23 tablet,extended release 24 hr potassium chloride 20 mEq See Rx Instructions .Route 04/15/23 tablet,extended release .COMPLEX #90 tabs rosuvastatin 5 mg tablet 5 mg PO DAILY #90 tabs 05/03/23 bupropion HCl 300 mg 24 hr tablet, 300 mg PO QAM #30 tabs 11/07/23 extended release Allergies Allergy/AdvReac Type Severity Reaction Status Date / Time clozapine [From Clozaril] Allergy Severe dilated Verified 01/26/24 17:48 cardiomyopathy 30% 2001 General Stated Complaint: GenMedical SHREYAS: 3 Exam Narrative Exam Narrative: Alert and oriented x 2 at reported baseline 54-year-old male, pupils equal round reactive to light and accommodation, no scleral icterus or jaundice, lungs clear to auscultation bilaterally, cardiac rate rhythm regular, right upper quadrant tenderness, no rebound or guarding, no pallor, alert and oriented x 2 at base line per mom, able to follow all basic commands, mildly delayed speech. No peripheral edema, distal pulses intact Course Vital Signs Vital signs: Vital Signs Temperature 37.3 C 01/26/24 17:43 Pulse 97 H 01/26/24 17:43 Respiratory Rate 16 01/26/24 17:43 Blood Pressure 124/65 01/26/24 17:43 Pulse Oximetry 95 01/26/24 17:43 Temperature 37.3 C 01/26/24 22:56 Pulse 92 H 01/26/24 22:56 Pulse Rhythm Regular 01/26/24 22:56 Pulse 97 H 01/26/24 22:30 Respiratory Rate 18 01/26/24 22:56 Respiratory Effort Normal, Non-Labored 01/26/24 22:56 Respiratory Depth Normal 01/26/24 22:56 Respiratory Pattern Normal 01/26/24 22:56 Blood Pressure 112/65 01/26/24 22:56 Blood Pressure Mean 70 01/26/24 22:01 Pulse Oximetry 96 01/26/24 22:56 Oxygen Delivery Method Room Air 01/26/24 22:56 Oxygen Flow Rate 0 01/26/24 22:56 Pain Level 3 01/26/24 22:56 Lab/Test Results Lab/Test Results: Laboratory Tests Range/Units 01/26/24 01/26/24 01/26/24 18:35 18:40 18:43 WBC Cancelled 17.04 H RBC Cancelled 5.56 Hgb Cancelled 16.3 Hct Cancelled 44.8 MCV Cancelled 81 MCH Cancelled 29.3 MCHC Cancelled 36.4 H RDW Cancelled 12.8 Plt Count Cancelled 258 MPV Cancelled 7.8 L Immature Gran % Cancelled 0.5 Neutrophils % Cancelled 88.9 Band Neutrophils % Cancelled Lymphocytes % Cancelled 3.5 Atypical Lymphs % Cancelled Monocytes % Cancelled 6.5 Eosinophils % Cancelled 0.2 Basophils % Cancelled 0.4 Metamyelocytes % Cancelled Myelocytes % Cancelled Promyelocytes % Cancelled Other Cells % Cancelled Nucleated RBC % Cancelled 0.0 Absolute Neutrophils Cancelled 15.15 H Absolute Lymphocytes Cancelled 0.60 L Absolute Monocytes Cancelled 1.11 H Absolute Eosinophils Cancelled 0.03 Absolute Basophils Cancelled 0.07 RBC Morphology Cancelled Polychromasia Cancelled Hypochromasia Cancelled Poikilocytosis Cancelled Basophilic Stippling Cancelled Anisocytosis Cancelled Microcytosis Cancelled Macrocytosis Cancelled Spherocytes Cancelled Tear Drop Cells Cancelled Ovalocytes Cancelled Stomatocytes Cancelled [place] Bodies Cancelled [place] Cells/Echinocytes Cancelled Acanthocytes (Spur) Cancelled Schistocytes Cancelled Sodium (136-145) mmol/L 123 L* Potassium (3.5-5.1) mmol/L 3.7 Chloride (98-107) mmol/L 89 L Carbon Dioxide (21.0-32.0) mmol/L 23.7 Anion Gap (3-11) mmol/L 10.3 BUN (7-18) mg/dL 5 L Creatinine (0.70-1.30) mg/dL 0.9 Est GFR (CKD-EPI 2020) (mL/min/1.73m2) 100.86 Glucose (74-106) mg/dL 120 H Calcium (8.5-10.1) mg/dL 8.9 Magnesium (1.8-2.4) mg/dL 1.6 L Total Bilirubin (0.2-1.0) mg/dL 0.79 AST (15-37) U/L 17 ALT (16-63) U/L 33 Alkaline Phosphatase (46-116) U/L 78 Ammonia (11-32) umol/L 24 Troponin I (< or =60) ng/L < 50 Total Protein (6.4-8.2) g/dL 7.5 Albumin (3.4-5.0) g/dL 3.8 TSH (0.36-3.74) uIU/mL 0.70 Urine Color (Yellow) Urine Clarity (Clear) Urine pH (5-8) Ur Specific [place] (1.005-1.025) Urine Protein (Neg-Trace) mg/dL Urine Ketones (Negative) mg/dL Urine Blood (Negative) Urine Nitrite (Negative) Urine Bilirubin (Negative) Urine Urobilinogen (Up to 0.2) mg/dL Ur Leukocyte Esterase (Negative) Urine Glucose (Negative) mg/dL Urine Opiates Screen (Negative) Urine Methadone Screen (Negative) Ur Barbiturates Screen (Negative) Ur Tricyclics Screen (Negative) Ur Amphetamines Screen (Negative) U Benzodiazepines Scrn (Negative) Urine Cocaine Screen (Negative) Ur THC Screen (Negative) Ethyl Alcohol (<10) mg/dL < 3.0 Range/Units 01/26/24 19:30 WBC RBC Hgb Hct MCV MCH MCHC RDW Plt Count MPV Immature Gran % Neutrophils % Band Neutrophils % Lymphocytes % Atypical Lymphs % Monocytes % Eosinophils % Basophils % Metamyelocytes % Myelocytes % Promyelocytes % Other Cells % Nucleated RBC % Absolute Neutrophils Absolute Lymphocytes Absolute Monocytes Absolute Eosinophils Absolute Basophils RBC Morphology Polychromasia Hypochromasia Poikilocytosis Basophilic Stippling Anisocytosis Microcytosis Macrocytosis Spherocytes Tear Drop Cells Ovalocytes Stomatocytes [place] Bodies [place]rell Cells/Echinocytes Acanthocytes (Spur) Schistocytes Sodium (136-145) mmol/L Potassium (3.5-5.1) mmol/L Chloride (98-107) mmol/L Carbon Dioxide (21.0-32.0) mmol/L Anion Gap (3-11) mmol/L BUN (7-18) mg/dL Creatinine (0.70-1.30) mg/dL Est GFR (CKD-EPI 2020) (mL/min/1.73m2) Glucose (74-106) mg/dL Calcium (8.5-10.1) mg/dL Magnesium (1.8-2.4) mg/dL Total Bilirubin (0.2-1.0) mg/dL AST (15-37) U/L ALT (16-63) U/L Alkaline Phosphatase (46-116) U/L Ammonia (11-32) umol/L Troponin I (< or =60) ng/L Total Protein (6.4-8.2) g/dL Albumin (3.4-5.0) g/dL TSH (0.36-3.74) uIU/mL Urine Color (Yellow) Yellow Urine Clarity (Clear) Clear Urine pH (5-8) 7.0 Ur Specific [place] (1.005-1.025) 1.010 Urine Protein (Neg-Trace) mg/dL Negative Urine Ketones (Negative) mg/dL Negative Urine Blood (Negative) Negative Urine Nitrite (Negative) Negative Urine Bilirubin (Negative) Negative Urine Urobilinogen (Up to 0.2) mg/dL 0.2 Ur Leukocyte Esterase (Negative) Negative Urine Glucose (Negative) mg/dL 500 H Urine Opiates Screen (Negative) Negative Urine Methadone Screen (Negative) Negative Ur Barbiturates Screen (Negative) Negative Ur Tricyclics Screen (Negative) Negative Ur Amphetamines Screen (Negative) Negative U Benzodiazepines Scrn (Negative) Negative Urine Cocaine Screen (Negative) Negative Ur THC Screen (Negative) Negative Ethyl Alcohol (<10) mg/dL Medical Decision Making 54-year-old male presenting with abdominal pain confusion, and shuffling gait. Leukocytosis, 17,000, afebrile, no evidence of acute abdomen. CTA head, chest abdomen pelvis were ordered as patient is a poor historian at baseline. Mother is guardian. Hyponatremia noted, 123 chloride of 89, likely secondary to Lasix, that patient has had a prior serum osmolality of 56 mag of 1.6, will supplement no evidence of diabetic ketoacidosis. Patient has been calm and cooperative throughout encounter, he has evidence of severe cholecystitis per radiology. Patient's not afebrile, Zosyn was initiated. CT showed evidence of distended bladder, patient was able to give a urine sample large amount of urine produced. This was not measured unfortunately. Patient is not having any lower quadrant tenderness on exam. CT head per radiology interpretation my review does not show evidence of acute abnormality. I discussed the case with Dr. Montgomery who will admit patient to his service. He is aware that patient has acute hyponatremia and is willing to accept this patient to his service. Patient does have a documented history of cardiomyopathy however on his last echocardiogram, patient had ejection fraction 56% without any significant acute abnormalities. Patient is agreeable to admission at this time. Zosyn, fluids initiated Quality:SDOH Health Related Social Needs: No Data to Display [facility] All Active Problems (Updated 01/26/24 @ 23:36 by Racquel Tom, PA) Cholecystitis (Acute) Hyponatremia (Chronic ~09/2023) Chronic, but with worsened baseline 09/2023; fluid restrix Cardiomyopathy (Chronic 12/27/00) 2023 ECHO: Stable Simple schizophrenia, chronic condition (Chronic 07/28/90) Paranoid type; social anxiety Obstructive sleep apnea syndrome (Acute 12/20/06) SLEEP Study 12/20/06 [facility] [place] also [facility], not using CPAP Morbid obesity (Acute 09/17/11) Hyperlipidemia (Acute 09/17/11) Essential hypertension (Acute 12/01/12) Diabetes mellitus (Chronic 07/29/97) 1997 onset, A1c 8.3 and multiple >6.6 10/2006; on insulin SUMMER 2006 UNTIL 2013 Chronic disease of respiratory system (Acute 05/29/01) RESTRICTIVE LUNG DIS Medical History Leg weakness, bilateral BMI 50.0-59.9, adult 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 perianal abscess Family History Other Lung cancer Social History Smoking/Tobacco Use Status: Former Tobacco Use Smoking risk assessment performed?: Yes Alcohol Intake: never Drug use: Never Substance use type: does not use Adopted: No Household members: family Housing: house Number of Children: 0 Communication Needs: Corrective Lenses current occupation: disabled Pets and animals: Yes Pets and animals: dog(s) How often do you talk on the phone with friends or family?: three or more times per week Panel score (0-1 are the most socially isolated patients): 1 What type of physical activity do you participate in: none Seatbelt use: always Drive intox or ride 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
[2024-01-26] MEDS: Lactated Ringers 1,000 ML 160 ML IV (23:45)
[2024-01-27] VITALS (86 sets, daily range): BP systolic 91–125; BP diastolic 51–76; PULSE 79–107; RESP 13–26; TEMP 36.7–38.6; O2SAT 93–97; BMI 44.4
[2024-01-27] MEDS: Lidocaine 2% Jelly 11 ML SYR UR (00:19)
--- NOTE | 2024-01-27 00:41 | NUR.NOTE ---
Nursing Note: Pt admitted to [facility] floor 22:50, pt guardian, his mother, escorted by supervisor steffen house to bedside with home medications in unlabeled pillbox. Multiple medications in HS compartment. Per mother, medications included in the HS container included: Olanzapine 20mg, Metformin 1,000mg, Clonazepam 0.5mg, Metoprolol ER 50mg, Topiramate 50mg, and Rosuvastatin 5mg. Per supervisor steffen house, mother OK to administer home medication doses as patient can only take the name brand doses of his medications. Mother administered medications with water, pt tolerated PO medications well. Mother to stay bedside overnight. Call garza within reach.
--- NOTE | 2024-01-27 01:15 | W.PC.ACHO ---
Registration Status: ADM CARLI Primary Language: Preferred Language: Kyrgyz ED Information & Data Chief Complaint GenMedical 01/26/24 23:35 Triage Note Legs weaker not working 01/26/24 17:43 that well, reports mild shortness of breath, reports increased confusion. Able to answer questions, states he is feeling off. has hx CHF and hyponatremia. 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) Short of breath on exertion (09/17/11) Peripheral venous insufficiency (02/23/09) Other seborrheic keratosis (02/19/12) Anal fissure (10/27/12) Most Recent Vital Signs Temperature 37.3 C 01/26/24 22:56 Pulse 92 H 01/26/24 22:56 Pulse Rhythm Regular 01/26/24 22:56 Pulse 97 H 01/26/24 22:30 Respiratory Rate 18 01/26/24 22:56 Respiratory Effort Normal, Non-Labored 01/26/24 22:56 Respiratory Depth Normal 01/26/24 22:56 Respiratory Pattern Normal 01/26/24 22:56 Blood Pressure 112/65 01/26/24 22:56 Blood Pressure Mean 70 01/26/24 22:01 Pulse Oximetry 96 01/26/24 22:56 Oxygen Delivery Method Room Air 01/26/24 22:56 Oxygen Flow Rate 0 01/26/24 22:56 Pain Level 3 01/26/24 22:56 Allergies clozapine [From Clozaril] Allergy (Severe, Verified 01/26/24 17:48) dilated cardiomyopathy 30% 2002 Precautions Isolation Standard precaution 01/26/24 18:30 Active Medications Generic Name Dose Route Start Last Admin Trade Name Freq PRN Reason Stop Dose Admin Heparin Sodium (Porcine) 5,000 units 01/26/24 22:00 01/26/24 22:25 Heparin 5,000 Units/Ml Vial SC 5,000 units Q8H L[facility] Administration Ringer's Solution 1,000 mls @ 160 mls/hr 01/26/24 22:00 01/26/24 23:45 IV 160 mls/hr INFUSION L[facility] Administration Piperacillin Sod/Tazobactam 50 mls @ 100 mls/hr 01/26/24 22:00 01/26/24 22:15 Sod 3.375 gm/ Sodium Chloride IVPB Not Given Q6H [facility] Acetaminophen 1,000 mg in 100 mls @ 400 mls/hr 01/26/24 22:00 01/26/24 22:46 Ofirmev IVPB Infused Q6H [facility] Infusion Iohexol 100 ml 01/26/24 19:00 01/26/24 18:53 Omnipaque 350 Mg/Ml 100 Ml Btl IJ 02/25/24 23:59 100 ml DIRECTED L[facility] Administration Sodium Chloride 0 ml 01/26/24 18:54 01/26/24 18:54 Normal Saline Flush 10 Ml Syr IVP 10 ml PRN PRN Administration Sodium Chloride 50 ml 01/26/24 19:00 01/26/24 18:55 Normal Saline - Diluent 50 Ml Vial IJ 50 ml .FOR DI USE LESLEE Administration IV IV Catheter Type [Left Saline Lock Antecubital] IV Catheter Gauge [Left 18 Antecubital] Diet Orders Category Date Time Status Post Op Diet [DIET] Nutrition 01/26/24 Dinner Active Diagnostics 01/27/24 01/26/24 01/26/24 Range/Units 05:35 19:30 18:43 WBC Pending RBC Pending Hgb Pending Hct Pending MCV Pending MCH Pending MCHC Pending RDW Pending Plt Count Pending MPV Pending Immature Gran % Pending Neutrophils % Pending Band Neutrophils % Lymphocytes % Pending Atypical Lymphs % Monocytes % Pending Eosinophils % Pending Basophils % Pending Metamyelocytes % Myelocytes % Promyelocytes % Other Cells % Nucleated RBC % Absolute Neutrophils Pending Absolute Lymphocytes Pending Absolute Monocytes Pending Absolute Eosinophils Pending Absolute Basophils Pending RBC Morphology Polychromasia Hypochromasia Poikilocytosis Basophilic Stippling Anisocytosis Microcytosis Macrocytosis Spherocytes Tear Drop Cells Ovalocytes Stomatocytes [place] Bodies [place]rell Cells/Echinocytes Acanthocytes (Spur) Schistocytes Sodium Pending (136-145) mmol/L Potassium Pending (3.5-5.1) mmol/L Chloride Pending (98-107) mmol/L Carbon Dioxide Pending (21.0-32.0) mmol/L Anion Gap Pending (3-11) mmol/L BUN Pending (7-18) mg/dL Creatinine Pending (0.70-1.30) mg/dL Est GFR (CKD-EPI 2020) Pending (mL/min/1.73m2) Glucose Pending (74-106) mg/dL Calcium Pending (8.5-10.1) mg/dL Magnesium 1.6 L (1.8-2.4) mg/dL Total Bilirubin Pending (0.2-1.0) mg/dL AST Pending (15-37) U/L ALT Pending (16-63) U/L Alkaline Phosphatase Pending (46-116) U/L Ammonia (11-32) umol/L Troponin I (< or =60) ng/L Total Protein Pending (6.4-8.2) g/dL Albumin Pending (3.4-5.0) g/dL TSH 0.70 (0.36-3.74) uIU/mL Urine Color Yellow (Yellow) Urine Clarity Clear (Clear) Urine pH 7.0 (5-8) Ur Specific [place] 1.010 (1.005-1.025) Urine Protein Negative (Neg-Trace) mg/dL Urine Ketones Negative (Negative) mg/dL Urine Blood Negative (Negative) Urine Nitrite Negative (Negative) Urine Bilirubin Negative (Negative) Urine Urobilinogen 0.2 (Up to 0.2) mg/dL Ur Leukocyte Esterase Negative (Negative) Urine Glucose 500 H (Negative) mg/dL Urine Opiates Screen Negative (Negative) Urine Methadone Screen Negative (Negative) Ur Barbiturates Screen Negative (Negative) Ur Tricyclics Screen Negative (Negative) Ur Amphetamines Screen Negative (Negative) U Benzodiazepines Scrn Negative (Negative) Urine Cocaine Screen Negative (Negative) Ur THC Screen Negative (Negative) Ethyl Alcohol (<10) mg/dL 01/26/24 01/26/24 Range/Units 18:40 18:35 WBC 17.04 H Cancelled RBC 5.56 Cancelled Hgb 16.3 Cancelled Hct 44.8 Cancelled MCV 81 Cancelled MCH 29.3 Cancelled MCHC 36.4 H Cancelled RDW 12.8 Cancelled Plt Count 258 Cancelled MPV 7.8 L Cancelled Immature Gran % 0.5 Cancelled Neutrophils % 88.9 Cancelled Band Neutrophils % Cancelled Lymphocytes % 3.5 Cancelled Atypical Lymphs % Cancelled Monocytes % 6.5 Cancelled Eosinophils % 0.2 Cancelled Basophils % 0.4 Cancelled Metamyelocytes % Cancelled Myelocytes % Cancelled Promyelocytes % Cancelled Other Cells % Cancelled Nucleated RBC % 0.0 Cancelled Absolute Neutrophils 15.15 H Cancelled Absolute Lymphocytes 0.60 L Cancelled Absolute Monocytes 1.11 H Cancelled Absolute Eosinophils 0.03 Cancelled Absolute Basophils 0.07 Cancelled RBC Morphology Cancelled Polychromasia Cancelled Hypochromasia Cancelled Poikilocytosis Cancelled Basophilic Stippling Cancelled Anisocytosis Cancelled Microcytosis Cancelled Macrocytosis Cancelled Spherocytes Cancelled Tear Drop Cells Cancelled Ovalocytes Cancelled Stomatocytes Cancelled [place] Bodies Cancelled [place] Cells/Echinocytes Cancelled Acanthocytes (Spur) Cancelled Schistocytes Cancelled Sodium 123 L* (136-145) mmol/L Potassium 3.7 (3.5-5.1) mmol/L Chloride 89 L (98-107) mmol/L Carbon Dioxide 23.7 (21.0-32.0) mmol/L Anion Gap 10.3 (3-11) mmol/L BUN 5 L (7-18) mg/dL Creatinine 0.9 (0.70-1.30) mg/dL Est GFR (CKD-EPI 2020) 100.86 (mL/min/1.73m2) Glucose 120 H (74-106) mg/dL Calcium 8.9 (8.5-10.1) mg/dL Magnesium (1.8-2.4) mg/dL Total Bilirubin 0.79 (0.2-1.0) mg/dL AST 17 (15-37) U/L ALT 33 (16-63) U/L Alkaline Phosphatase 78 (46-116) U/L Ammonia 24 (11-32) umol/L Troponin I < 50 (< or =60) ng/L Total Protein 7.5 (6.4-8.2) g/dL Albumin 3.8 (3.4-5.0) g/dL TSH (0.36-3.74) uIU/mL Urine Color (Yellow) Urine Clarity (Clear) Urine pH (5-8) Ur Specific [place] (1.005-1.025) Urine Protein (Neg-Trace) mg/dL Urine Ketones (Negative) mg/dL Urine Blood (Negative) Urine Nitrite (Negative) Urine Bilirubin (Negative) Urine Urobilinogen (Up to 0.2) mg/dL Ur Leukocyte Esterase (Negative) Urine Glucose (Negative) mg/dL Urine Opiates Screen (Negative) Urine Methadone Screen (Negative) Ur Barbiturates Screen (Negative) Ur Tricyclics Screen (Negative) Ur Amphetamines Screen (Negative) U Benzodiazepines Scrn (Negative) Urine Cocaine Screen (Negative) Ur THC Screen (Negative) Ethyl Alcohol < 3.0 (<10) mg/dL [id number] Documentation Fingerstick Glucose Start: 01/26/24 17:52 Freq: Status: Active Protocol: Activity Type Activity Date Activity User E-sign Co-sign Detail Recorded Client Recorded Date Recorded By Document 01/26/24 17:52 SKIP DAEMON(3) [id number] 01/26/24 17:52 BKG DAEMON(4) Intake and Output - 24 Hour Total 01/26/24 17:40 thru 01/27/24 01:12 Intake Total 670 Output Total 1700 Balance -1030 Weight 132.4 kg Intake: IV 670 Output: Urine 1700 Other: Urine Color Pale Yellow Urine Appearance Clear Urinary Catheter Urinary Catheter Date of 01/26/24 Insertion [Uretheral (Borges)] Time of insertion [Uretheral ( 23:55 Borges)] Falls Risk Assessment History of Falls No History 01/26/24 22:56 Contributing Factors Confusion,Impairments 01/26/24 22:56 Ambulatory Aids Independent 01/26/24 22:56 Tubes/Lines With any additional score 01/26/24 22:56 Gait Evaluation W/any additional score 01/26/24 22:56 Cognition Cognitive impairment 01/26/24 22:56 Fall Total Score 61 01/26/24 22:56 Level of Risk High Risk 01/26/24 22:56 Problems (Last Reviewed 10/31/23 @ 14:12 by Lupe Olmedo NP) Cholecystitis (Acute) Notes 01/27/24 00:41 Nursing Notes by Mini Coon Nursing Note: Pt admitted to [facility] floor 22:50, pt guardian, his mother, escorted by dye house vat worker to bedside with home medications in unlabeled pillbox. Multiple medications in HS compartment. Per mother, medications included in the HS container included: Olanzapine 20mg, Metformin 1,000mg, Clonazepam 0.5mg, Metoprolol ER 50mg, Topiramate 50mg, and Rosuvastatin 5mg. Per dye house vat worker, mother OK to administer home medication doses as patient can only take the name brand doses of his medications. Mother administered medications with water, pt tolerated PO medications well. Mother to stay bedside overnight. Call garza within reach. Initialized on 01/27/24 00:41 - END OF NOTE v v v v v v v v v Sending and/or Receiving Nurses: Please use comment section below to note any information pertinent to the patient hand-off not included above. Information / Comments: Bladder distention noted on scan--insert borges catheter L AC 18G LR @ 160mL/hr Mother is guardian Hx of schizophrenia Report received from: Jimi Min
[2024-01-27] MEDS: ACETAMINOPHEN 1,000 MG/100 ML BTL 400 MG IVPB ×4 (04:16→22:00)
[2024-01-27] MEDS: PIPERACILLIN/TAZO 3.375 GM in Normal Saline 50 ML IVPB ×4 (05:03→22:39)
--- NOTE | 2024-01-27 06:34 | PGE_ITS ---
Date of Service Date of service: 01/27/24 Time of Service: 07:40 Assessment and Plan Assessment and plan (1) Cholecystitis: Status: Acute Assessment and plan: 54-year-old man with acute cholecystitis. His leukocytosis is worsening and he had some transient low blood pressure and mild tachycardia. He is definitely septic from his gallbladder and needs to have it removed. Interestingly enough, his sodium has drastically improved, and honestly that is probably related to some amount of dehydration starting to take place since it sounds like he is drinking way too much water at home. In any event, I recommend proceeding with laparoscopic cholecystectomy. I explained the indications to the patient and his mother at the bedside. I also explained the likely benefits of surgery but the potential risks. They want to proceed with surgery. I presume we will find a gangrenous gallbladder inside and he may need to stay for IV antibiotics and a surgical drain after his procedure. We will see once we get in there. Overall plan: Laparoscopic cholecystectomy Subjective Subjective Interval history since last seen: At the bedside this morning the patient feels about the same as he has been. His mother and him say he has been like this for the last few weeks but it slowly getting worse. Overnight he did have low-grade tachycardia and a fever and mild hypotension (systolic 90s) I answered all of their questions about the surgery. His mother reports at the bedside this morning, that he drinks copious amounts of water. Exam Narrative Exam Narrative: General: Nontoxic, comfortable and interactive. He does not appear in any distress. He is morbidly obese Neuro: Alert and oriented x 3 Psych: Somewhat flat affect and mood but otherwise seemingly good insight and understanding into his condition. Chest: Nonlabored breathing Heart: Regular Abdomen: Obese, but otherwise soft and nondistended. Focal tenderness in the subcostal margin. Positive Lee sign. Objective Last Vital Signs Temp 101.5 F H 01/27/24 05:16 Pulse 107 H 01/27/24 05:16 Resp 18 01/27/24 05:16 BP 91/58 L 01/27/24 05:16 Pulse Ox 96 01/27/24 05:16 Laboratory Results - last 24 hr 01/26/24 01/26/24 01/26/24 18:35 18:40 18:43 WBC Cancelled 17.04 H RBC Cancelled 5.56 Hgb Cancelled 16.3 Hct Cancelled 44.8 MCV Cancelled 81 MCH Cancelled 29.3 MCHC Cancelled 36.4 H RDW Cancelled 12.8 Plt Count Cancelled 258 MPV Cancelled 7.8 L Immature Gran % Cancelled 0.5 Neutrophils % Cancelled 88.9 Band Neutrophils % Cancelled Lymphocytes % Cancelled 3.5 Atypical Lymphs % Cancelled Monocytes % Cancelled 6.5 Eosinophils % Cancelled 0.2 Basophils % Cancelled 0.4 Metamyelocytes % Cancelled Myelocytes % Cancelled Promyelocytes % Cancelled Other Cells % Cancelled Nucleated RBC % Cancelled 0.0 Absolute Neutrophils Cancelled 15.15 H Absolute Lymphocytes Cancelled 0.60 L Absolute Monocytes Cancelled 1.11 H Absolute Eosinophils Cancelled 0.03 Absolute Basophils Cancelled 0.07 RBC Morphology Cancelled Polychromasia Cancelled Hypochromasia Cancelled Poikilocytosis Cancelled Basophilic Stippling Cancelled Anisocytosis Cancelled Microcytosis Cancelled Macrocytosis Cancelled Spherocytes Cancelled Tear Drop Cells Cancelled Ovalocytes Cancelled Stomatocytes Cancelled [place] Bodies Cancelled Terrell Cells/Echinocytes Cancelled Acanthocytes (Spur) Cancelled Schistocytes Cancelled Sodium 123 L* Potassium 3.7 Chloride 89 L Carbon Dioxide 23.7 Anion Gap 10.3 BUN 5 L Creatinine 0.9 Est GFR (CKD-EPI 2020) 100.86 Glucose 120 H Calcium 8.9 Magnesium 1.6 L Total Bilirubin 0.79 AST 17 ALT 33 Alkaline Phosphatase 78 Ammonia 24 Troponin I < 50 Total Protein 7.5 Albumin 3.8 TSH 0.70 Urine Color Urine Clarity Urine pH Ur Specific [place] Urine Protein Urine Ketones Urine Blood Urine Nitrite Urine Bilirubin Urine Urobilinogen Ur Leukocyte Esterase Urine Glucose Urine Opiates Screen Urine Methadone Screen Ur Barbiturates Screen Ur Tricyclics Screen Ur Amphetamines Screen U Benzodiazepines Scrn Urine Cocaine Screen Ur THC Screen Ethyl Alcohol < 3.0 01/26/24 19:30 WBC RBC Hgb Hct MCV MCH MCHC RDW Plt Count MPV Immature Gran % Neutrophils % Band Neutrophils % Lymphocytes % Atypical Lymphs % Monocytes % Eosinophils % Basophils % Metamyelocytes % Myelocytes % Promyelocytes % Other Cells % Nucleated RBC % Absolute Neutrophils Absolute Lymphocytes Absolute Monocytes Absolute Eosinophils Absolute Basophils RBC Morphology Polychromasia Hypochromasia Poikilocytosis Basophilic Stippling Anisocytosis Microcytosis Macrocytosis Spherocytes Tear Drop Cells Ovalocytes Stomatocytes [place] Bodies [place] Cells/Echinocytes Acanthocytes (Spur) Schistocytes Sodium Potassium Chloride Carbon Dioxide Anion Gap BUN Creatinine Est GFR (CKD-EPI 2020) Glucose Calcium Magnesium Total Bilirubin AST ALT Alkaline Phosphatase Ammonia Troponin I Total Protein Albumin TSH Urine Color Yellow Urine Clarity Clear Urine pH 7.0 Ur Specific [place] 1.010 Urine Protein Negative Urine Ketones Negative Urine Blood Negative Urine Nitrite Negative Urine Bilirubin Negative Urine Urobilinogen 0.2 Ur Leukocyte Esterase Negative Urine Glucose 500 H Urine Opiates Screen Negative Urine Methadone Screen Negative Ur Barbiturates Screen Negative Ur Tricyclics Screen Negative Ur Amphetamines Screen Negative U Benzodiazepines Scrn Negative Urine Cocaine Screen Negative Ur THC Screen Negative Ethyl Alcohol Time Spent with Patient Time Spent with Patient: <25 minutes Time was spent: preparing to see the patient(eg.review tests), obtaining and/or reviewing separately otained hiistory, ordering medications,tests, procedures, indepentently interpreting results, counseling the patient and care coordination
[2024-01-27] MEDS: Lactated Ringers 1,000 ML 160 ML IV ×2 (07:06→14:47)
[2024-01-27 07:53] LABS: ALT 26 U/L (16-63); AST 15 U/L (15-37); Albumin 3.3 g/dL (3.4-5.0); Alkaline Phosphatase 61 U/L (46-116); Anion Gap 10.8 mmol/L (3-11); BUN 8 mg/dL (7-18); Bilirubin, Total 1.09 mg/dL (0.2-1.0); CO2 24.2 mmol/L (21.0-32.0); CREATININE 1.2 mg/dL (0.70-1.30); Chloride 95 mmol/L (98-107); Estimated GFR 71.42 (mL/min/1.73m2); Glucose 126 mg/dL (74-106); Potassium 3.2 mmol/L (3.5-5.1); Sodium 130 mmol/L (136-145); Total Protein 6.7 g/dL (6.4-8.2)
[2024-01-27 07:56] LABS: Abs Immature Grans 0.37 10^3/uL (0.0-0.06); Basophils % 0.7 %; Eosinophils % 0.4 %; HCT 45.1 % (40.0-50.0); HGB 16.4 g/dL (13.5-17.5); Immature Grans % 1.5 %; Lymphocytes % 1.6 %; MCH 29.4 pg (27.0-33.0); MCHC 36.4 % (32.0-36.0); MCV 81 fL (80-95); MPV 8.3 fL (8.0-11.0); Neutrophils % 91.8 %; Platelet Count 256 10^3/uL (130-400); RBC 5.57 10^6/uL (4.36-5.78); RDW 13.5 % (11.8-14.1); RDW-SD 39.4 fL
[2024-01-27 07:57] LABS: Absolute Basophil Count 0.17 10^3/uL (0.0-0.2); Absolute Lymphocyte Count 0.39 10^3/uL (1.2-3.4); Absolute Monocyte Count 0.97 10^3/uL (0.1-0.8); Absolute Neutrophil Count 22.22 10^3/uL (1.2-6.7)
--- NOTE | 2024-01-27 10:11 | ANES.PREOP_ITS ---
General Info Date of Service Date Performed: 01/27/24 Height: 5 ft 8 in Weight: 132.4 kg Body Mass Index (BMI): 44.4 Surgical Procedure: Operation Date: 01/27/24 11:25 Proposed Procedure Side Surgeon p Cholecystectomy Laparoscopic Cameron Montgomery MD Meds Allergies and Home Medications Allergies Allergy/AdvReac Type Severity Reaction Status Date / Time clozapine [From Clozaril] Allergy Severe dilated Verified 01/26/24 17:48 cardiomyopathy 30% 2001 Home Medication Medication Instructions Recorded ammonium lactate 12 % topical cream 1 applic topical BID #280 grams 09/22/19 psyllium husk 3.4 gram/5.4 gram See Rx Instructions PO BID PRN 06/13/21 oral powder (Metamucil) constipation #660 grams blood sugar diagnostic #100 strips 04/26/22 lancets (OneTouch UltraSoft #100 ea 04/26/22 Lancets) blood-glucose meter #1 ea 08/29/22 empagliflozin 25 mg tablet 25 mg PO DAILY #90 tabs 04/15/23 (Jardiance) famotidine 20 mg tablet 20 mg PO DAILY #90 tabs 04/15/23 furosemide 40 mg tablet 40 mg PO DAILY #90 tabs 04/15/23 lisinopril 40 mg tablet 40 mg PO DAILY #90 tab-caps 04/15/23 metformin 1,000 mg tablet 1,000 mg PO BID #180 tab-caps 04/15/23 metoprolol succinate 50 mg 50 mg PO BID #180 tabs 04/15/23 tablet,extended release 24 hr potassium chloride 20 mEq See Rx Instructions .Route 04/15/23 tablet,extended release .COMPLEX #90 tabs rosuvastatin 5 mg tablet 5 mg PO DAILY #90 tabs 05/03/23 clonazepam 0.5 mg tablet 0.5 mg PO QID 10/03/23 olanzapine 20 mg tablet 20 mg PO BID 10/03/23 topiramate 50 mg tablet (Topamax) 50 mg PO BID 10/03/23 bupropion HCl 300 mg 24 hr tablet, 300 mg PO QAM #30 tabs 11/07/23 extended release semaglutide 3 mg tablet (Rybelsus) 3 mg PO DAILY 12/31/23 Current Visit Medications: Current Medications Generic Name Dose Route Start Last Admin Trade Name Freq PRN Reason Stop Dose Admin Bupropion HCl 300 mg 01/27/24 08:30 Bupropion-Xl 150 Mg Tabcr PO QAM [facility] Clonazepam 0.5 mg 01/27/24 08:30 Clonazepam 0.5 Mg Tab PO QID [facility] Famotidine 20 mg 01/27/24 08:30 Famotidine 20 Mg Tab PO DAILY [facility] Heparin Sodium (Porcine) 5,000 units 01/26/24 22:00 01/27/24 05:43 Heparin 5,000 Units/Ml Vial SC Not Given Q8H [facility] Ringer's Solution 1,000 mls @ 160 mls/hr 01/26/24 22:00 01/27/24 07:06 IV 160 mls/hr INFUSION [facility] Administration Piperacillin Sod/Tazobactam 50 mls @ 100 mls/hr 01/26/24 22:00 01/27/24 05:38 Sod 3.375 gm/ Sodium Chloride IVPB Infused Q6H [facility] Infusion Acetaminophen 1,000 mg in 100 mls @ 400 mls/hr 01/26/24 22:00 01/27/24 04:35 Ofirmev IVPB Infused Q6H [facility] Infusion IV Miscellaneous Supplies 1 each 01/26/24 22:00 Iv Access IV DIRECTED [facility] Insulin Aspart 0 units 01/27/24 08:00 01/27/24 09:28 Insulin Aspart 300 Units/3 Ml Pen SC Not Given 0800,1200,1700 [facility] Protocol Metoprolol Succinate 50 mg 01/27/24 08:30 Metoprolol Cr 50 Mg Tabcr PO BID [facility] Morphine Sulfate 2 mg 01/26/24 21:53 Morphine 2 Mg/Ml Syr IVP Q3H PRN PRN Non-Formulary Medication 1 applic 01/27/24 08:30 Ammonium Lactate TP BID [facility] Olanzapine 20 mg 01/27/24 08:30 Olanzapine 10 Mg Tab PO BID [facility] Ondansetron HCl 4 mg 01/26/24 21:53 Ondansetron 4 Mg/2 Ml Vial IVP Q4H PRN PRN Potassium Chloride 20 meq 01/27/24 08:30 Potassium Chloride 20 Meq Tabcr PO DAILY [facility] Sodium Chloride 0 ml 01/26/24 18:54 01/26/24 18:54 Normal Saline Flush 10 Ml Syr IVP 10 ml PRN PRN Administration Sodium Chloride 0 ml 01/27/24 08:30 Normal Saline Flush 10 Ml Syr IVP BID [facility] Topiramate 50 mg 01/27/24 08:30 Topiramate 50 Mg Tab PO BID LESLEE PFSH Active Problems Active Problems: Problem Status Onset Code Cholecystitis K81.9 Hyponatremia ~09/2023 E87.1 Cardiomyopathy 12/27/00 I42.9 Simple schizophrenia, chronic condition 07/28/90 F20.89 Obstructive sleep apnea syndrome 12/20/06 G47.33 Morbid obesity 09/17/11 E66.01 Hyperlipidemia 09/17/11 E78.5 Essential hypertension 12/01/12 I10 Diabetes mellitus 07/29/97 E11.9 Chronic disease of respiratory system 05/29/01 J98.9 Medical History Medical History Leg weakness, bilateral BMI 50.0-59.9, adult 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 perianal abscess Tobacco Smoking/Tobacco Use Status: Former Tobacco Use Alcohol Alcohol Intake: never Substance Use Substance use: Never Substance use type: does not use Vital Signs and Lab Results Vital Signs Most Recent Vital Signs in EMR: Most Recent Vital Signs Temp Pulse Resp BP Pulse Ox 37.3 C 88 20 105/68 94 01/27/24 08:07 01/27/24 08:07 01/27/24 08:07 01/27/24 08:07 01/27/24 08:07 Point of Care Results Point of Care Results: Finger Stick Blood Glucose 117 01/27/24 08:59 Lab Results 01/27/24 07:10 01/27/24 07:10 Blood Type / Crossmatch: 2 No Data to Display Complete Blood Count: 2 White Blood Count 24.20 10^3/uL (4.4-10.8) H 01/27/24 07:10 Red Blood Count 5.57 10^6/uL (4.36-5.78) 01/27/24 07:10 Hemoglobin 16.4 g/dL (13.5-17.5) 01/27/24 07:10 Hematocrit 45.1 % (40.0-50.0) 01/27/24 07:10 Platelet Count 256 10^3/uL (130-400) 01/27/24 07:10 Complete Metabolic Panel: 2 Sodium 130 mmol/L (136-145) L 01/27/24 07:10 Potassium 3.2 mmol/L (3.5-5.1) L 01/27/24 07:10 Chloride 95 mmol/L (98-107) L 01/27/24 07:10 Carbon Dioxide 24.2 mmol/L (21.0-32.0) 01/27/24 07:10 BUN 8 mg/dL (7-18) 01/27/24 07:10 Creatinine 1.2 mg/dL (0.70-1.30) 01/27/24 07:10 Est GFR (CKD-EPI 2020) 71.42 (mL/min/1.73m2) 01/27/24 07:10 Magnesium 1.6 mg/dL (1.8-2.4) L 01/26/24 18:43 Calcium 9.0 mg/dL (8.5-10.1) 01/27/24 07:10 Albumin 3.3 g/dL (3.4-5.0) L 01/27/24 07:10 Glucose 126 mg/dL (74-106) H 01/27/24 07:10 Liver Function Panel: 2 Alanine Aminotransferase (ALT/SGPT) 26 U/L (16-63) 01/27/24 07: 10 Aspartate Amino Transf (AST/SGOT) 15 U/L (15-37) 01/27/24 07:10 Coagulation Panel: 2 No Data to Display Cardiac Panel: 2 Troponin I < 50 ng/L (< or =60) 01/26/24 Arterial Blood Gas: 2 No Data to Display Venous Blood Gas: 2 No Data to Display Pancreas Panel: 2 No Data to Display Thyroid Panel: 2 Thyroid Stimulating Hormone (TSH) 0.70 uIU/mL (0.36-3.74) 01/25 18:43 Infectious Disease: 2 No Data to Display Blood Cultures: 2 No Data to Display Toxicology Panel: 2 Ethyl Alcohol Level < 3.0 mg/dL (<10) 01/26/24 18:40 Urine Amphetamines Screen Negative (Negative) 01/26/24 19:30 Urine Benzodiazepines Screen Negative (Negative) 01/26/24 19:3 0 Urine Barbiturates Screen Negative (Negative) 01/26/24 19:30 Urine Cocaine Screen Negative (Negative) 01/26/24 19:30 Urine Methadone Screen Negative (Negative) 01/26/24 19:30 Urine Opiates Screen Negative (Negative) 01/26/24 19:30 Ur Tricyclic Antidepressants Screen Negative (Negative) 19:30 Ur Tetrahydrocannabinol (THC) Scrn Negative (Negative) 4 19:30 Imaging and Studies Imaging and Studies Study information below may be from another EMR and interpreted by another provider. Please see original notes in EMR for more complete details. Echocardiogram Summary: Conclusion Normal left ventricular wall thickness and chamber size. Ejection fraction is 55 to 60%. Wall motion is normal Grossly normal right ventricular size and function Both atria are mildly dilated There is no structural or hemodynamically significant valvular disease 01/02/24 Anesthesia Assessment and Plan Anesthesia History Personal History: No History of General Anesthesia Family History: No Family History of Anesthesia Complications Exercise Tolerance Exercise Tolerance: Metabolic Equivalents<4 Pertinent Negatives Pertinent Negatives: No Major Cardiovascular Symptoms or Complaints, No Major Pulmonary Symptoms or Complaints and No History of CVA/TIA Cardiac & Pulmonary Exam Cardiac Exam: Normal S1/S2 Heart Sounds Pulmonary Exam: Clear Bilateral Breath Sounds Implantable Cardiac Device Does patient have a Pacemaker or an ICD?: No Airway Exam Known Difficult Airway: No Mallampati Class: 3 Mouth Opening: Normal (> 3cm) Thyromental Distance: Greater than 3 cm Neck Range of Motion: Full ROM Neck Circumference: Thick Teeth Condition: Generalized Poor Dentition (patient states that none are loose) ASA Classification ASA Score: ASA 3 Emergency Case?: No NPO Status NPO Status: NPO Clears >2 hours, Solids >8 hours Anesthesia Plan Resuscitation Status: Full Code Anesthesia Technique: General Anesthesia Airway Planned: Endotracheal Tube Monitors Used: Standard Monitors
[2024-01-27] MEDS: buPROPion-XL 150 MG TABCR 300 MG PO (10:32)
[2024-01-27] MEDS: Potassium Chloride 20 MEQ TABCR PO (10:32)
[2024-01-27] MEDS: clonazePAM 0.5 MG TAB PO ×3 (10:33→20:10)
[2024-01-27] MEDS: Famotidine 20 MG TAB PO (10:33)
[2024-01-27] MEDS: Topiramate 50 MG TAB PO ×2 (10:33→20:11)
[2024-01-27] MEDS: Metoprolol CR 50 MG TABCR PO ×2 (10:33→20:11)
[2024-01-27] MEDS: Bupivacaine 0.25% Pres-Free 30 ML VIAL (11:53)
--- NOTE | 2024-01-27 12:32 | GB_PTH ---
PATIENT: Devon Bai III LOC: U#:[id number] AGE/SX: 54/M ROOM: 228 RE01/26/[address]: Cameron Montgomery : 1970 BED: A DIS: 01/28/2024 SPEC #: [id number] RECD: 01/27/24 13:40 STATUS: CAT MORENO #: [id number] CHRISTINA: 01/27/24 12:[address]: Cameron Montgomery DEPT: Surgical Specimen RECD BY: Racquel Wallace ENTERED: 01/27/24 13:40 SP TYPE: GB OTHR DR: Lupe Olmedo APRN Tissues: 1 - GALLBLADDER Procedures: GROSS AND MICRO LEVEL 3 Comments: [id number]
--- NOTE | 2024-01-27 12:45 | W.PM.OP ---
Date of service: 01/27/24 Time of Service: 12:45 Operative Note Operative Note Refer to Anesthesia Record Procedure Description: Procedures performed: 1. Laparoscopic cholecystectomy Pre-op diagnosis: Gangrenous cholecystitis Postoperative diagnosis: Same Surgeon: Solomon Montgomery Anesthesia: Leslie Recreation Assistant: Otoniel Indication for procedure: 54-year-old diabetic and schizophrenic man presented with bellyache and a worsening leukocytosis and cross-sectional imaging showing a severely distended gallbladder with significant pericholecystic fluid. FINDINGS: Very distended and gangrenous gallbladder. Normal biliary anatomy. Specimens: 1. Gallbladder Complications: None Blood loss: 20 cc Urine output: Cornejo catheter - see nursing/anesthesia notes Implants/drains: None Procedure in detail: Patient gave written consent and was in agreement with the indications, the likely benefits as well as the potential risks of surgery. He was taken back to the operating room where anesthesia was administered which was tolerated well. Next he was positioned supine on the operating room table and we then prepped and draped in sterile fashion. We confirmed DVT prophylaxis as well as antibiotics had been administered. When we were all in agreement with our timeout we started the procedure. Local anesthetic was injected just above the umbilicus. A small stab incision was made at that location and a 5 mm trocar was used to enter the abdominal cavity through this. Insufflation was performed which was tolerated well. 2 more trocars were placed under direct visualization in the right hemiabdomen. Local anesthetic was also given in each of the sites. A 12 mm port was placed in the epigastrium under visualization. The gallbladder was easily identified and was draped with omentum and adhesions consistent with chronic disease. The duodenum was tightly adhered against the gallbladder. Sharp adhesiolysis was performed using a LigaSure for hemostasis in order to mobilize the gallbladder and get the duodenum off of it such that I could identify all of the anatomy. Once I had gained adequate exposure the fundus of the gallbladder was grasped, but it was really too tense to get a good hold on and show I punctured it and drained it with the suction patient registration supervisor. There was some dallin pus that came out in addition to bilious fluid. After draining, I was able to lock the grasper on the fundus over top of the cystotomy(so no stones would spill) and retracted towards the patient's left shoulder cephalad. This nicely exposed the biliary plate and the relevant anatomy. All of this was severely distended and full of pericholecystic fluid. By incising the peritoneum circumferentially and the cystic plate region, I was able to release the lalita-cholecystic fluid which was almost tense and under pressure. Once this was released, the dissection within the plate itself was actually quite simple and straightforward and I was able to easily identify all the anatomy. A combination of blunt and electrocautery dissection was performed isolating the cystic duct and the cystic artery. The entire cystic plate was cleared off confirming only 2 structures seen going into the gallbladder. These were clipped and divided. I then removed the rest of the gallbladder off the liver bed using electrocautery. It was placed in an Endo Catch bag and removed from the abdominal cavity. The specimen was passed off the back table and placed in formalin. I then checked the gallbladder fossa for any bile leaking or any bleeding. Hemostasis was excellent and there was no evidence of any bile leaking from the bed. The 12 mm port site was then closed with 0 Vicryl in the fascia using a Osmel-Marilyn. I rechecked for hemostasis 1 last time and it remained excellent. I did not feel the need to leave a drain considering there was no significant spillage of anything and the gangrenous gallbladder has been removed in its entirety. We released pneumoperitoneum. I removed the 5 mm trocars. The skin was closed with running Monocryl and Dermabond was placed on top of each site. The epigastric/extraction site was closed loosely and only a gauze dressing was placed here in anticipation because it is a high?risk site for a post?op wound infection. Patient tolerated the procedure well. The sponge, instruments and sharps counts were correct x3 at the end of the procedure. He was extubated and taken to the PACU in hemodynamically stable condition.
[2024-01-27] MEDS: HYDROmorphone 2 MG/ML SYR IVP (13:42)
[2024-01-27] MEDS: Heparin 5,000 UNITS/ML VIAL 5000 UNITS SC (14:46)
--- NOTE | 2024-01-27 14:47 | INITIAL_ITS ---
Date of service: 01/27/24 Time of Service: 14:47 Care Management Initial Assmt Initial Assessment Reason for Hospitalization: Acute Cholecystitis Functional Status/Living Situation Patient Presentation: Devon and his mom Meryl have lived together for several years. 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 Meryl provides transportation. Pt went to the OR and was not available, info was provided by chart review and from Meryl. CM will follow up with Devon in the morning. Town of Residence: [place] Resides with: Parent (Meryl Bai) Natural Supports: Employment Status: Disabled Instrumental Activities of Daily Living (ADLs): Independent Activities/Hobbies/SocialSupport: MANAGER MOLECULAR provided by [facility], CM is Tia ([facility]). Medications Medication Management: No Issues/Barriers identified Physical Functioning/Mobility Assistive Device: Bathes using a Shower Chair in the bath tub, does not have a shower at home Advance Directives Advance Directives: Do you have an Advance Directive: N 03/03/13 15:17 AD On File at [facility]: N 03/03/13 15:17 Date Asked 01/26/24 01/26/24 17:50 AD Date Reviewed COLST On File at [facility] COLST Date Scanned Code Status Resuscitation Status Full Code Portal Pt does not currently have a portal and education provided: Yes Insurance Coverage/Financial Issues Insurance: [facility] Federal Medicare Medicaid ACO Member: No Care Team Visit Care Team Role Provider Type Lupe Olmedo NP Primary Care Provider NURSE PRACTITIONER PEDRO Brooks Emergency Provider PHYSICIANS PLANNING TECHNICIAN Cameron Montgomery MD Admit Provider [facility] STAFF PHYSICIAN Attending Provider Discharge Potential Discharge Needs: PCP F/U Appt and Surgical F/U Appt Anticipated Barriers to Discharge: None Identified Patient/Family Education Needs: Review discharge instructions, discuss Ask Me Three Transportation: Private vehicle Plan: Anticipate, Devon will discharge home via private vehicle with Meryl when medically cleared by surgery. Pt will follow up with community providers and his discharge plan of care as instructed. CM will follow and support discharge considerations. PFSH All Active Problems (Updated 01/26/24 @ 23:36 by PEDRO Brooks) Cholecystitis (Acute) Hyponatremia (Chronic ~09/2023) Chronic, but with worsened baseline 09/2023; fluid restrix Cardiomyopathy (Chronic 12/27/00) 2023 ECHO: Stable Simple schizophrenia, chronic condition (Chronic 07/28/90) Paranoid type; social anxiety Obstructive sleep apnea syndrome (Acute 12/20/06) [place] [facility] [place] [facility], not using CPAP Morbid obesity (Acute 09/17/11) Hyperlipidemia (Acute 09/17/11) Essential hypertension (Acute 12/01/12) Diabetes mellitus (Chronic 07/29/97) 1998 onset, A1c 8.3 and multiple >6.6 10/2006; on insulin SUMMER 2006 UNTIL 2013 Chronic disease of respiratory system (Acute 05/29/01) RESTRICTIVE LUNG DIS Medical History Leg weakness, bilateral BMI 50.0-59.9, adult 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 perianal abscess Family History Other Lung cancer Social History Smoking/Tobacco Use Status: Former Tobacco Use Smoking risk assessment performed?: Yes Alcohol Intake: never Drug use: Never Substance use type: does not use Adopted: No Household members: family Housing: house Number of Children: 0 Communication Needs: Corrective Lenses current occupation: disabled Pets and animals: Yes Pets and animals: dog(s) How often do you talk on the phone with friends or family?: three or more times per week Panel score (0-1 are the most socially isolated patients): 1 What type of physical activity do you participate in: none Seatbelt use: always Drive intox or ride 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
[2024-01-27] MEDS: Potassium Chloride 20 MEQ TABCR 40 MEQ PO (16:52)
--- NOTE | 2024-01-27 16:56 | PHACLINREV_ITS ---
Pharmacy Admission Review Admission Clinical Review Admission Pharmacy Review: Cholecystitis (Acute) clozapine [From Clozaril] Allergy (Severe, Verified 01/26/24 17:48) dilated cardiomyopathy 30% 2001 Resuscitation Status Full Code Height 5 ft 8 in Weight 132.4 kg Pharmacy Admission Review Renal Dosing Renal Dosing: BUN 8 mg/dL (7-18) 01/27/24 07:10 Creatinine 1.2 mg/dL (0.70-1.30) 01/27/24 07:10 Medications needing adjustments: Reviewed (CrCl 92.4 mL/min) List of meds needing interventions: Current medications are okay Anticoagulation Anticoagulation: Hgb 16.4 g/dL (13.5-17.5) 01/27/24 07:10 Hct 45.1 % (40.0-50.0) 01/27/24 07:10 Plt Count 256 10^3/uL (130-400) 01/27/24 07:10 Creatinine 1.2 mg/dL (0.70-1.30) 01/27/24 07:10 DVT Prophylaxis: Reviewed Medications: Heparin (q8h) Opiate Usage Evaluate Pain Scale/Pains Meds: Reviewed (PRN morphine IVP) Scheduled Bowel Reg ordered if on Opiates?: No Relevant Labs Relevant Labs: Sodium 130 mmol/L (136-145) L 01/27/24 07:10 Potassium 3.2 mmol/L (3.5-5.1) L 01/27/24 07:10 Chloride 95 mmol/L (98-107) L 01/27/24 07:10 Magnesium 1.6 mg/dL (1.8-2.4) L 01/26/24 18:43 Electrolytes, C-Reactive P, ESR: Reviewed (Na increased from 123 to 130, K 3.2 - repleting) DM Control DM Control: Glucose 126 mg/dL (74-106) H 01/27/24 07:10 Finger Stick Blood Glucose 145 1657 Finger Stick Blood Glucose 145 1657 Finger Stick Blood Glucose 127 1316 Finger Stick Blood Glucose 127 1316 Finger Stick Blood Glucose 117 0859 Finger Stick Blood Glucose 117 0859 DM Control: Reviewed Insulin Dosing, Diabetic Medication: Has order for sliding scale insulin Cardiac Review Cardiac Review: Troponin I < 50 ng/L (< or =60) 01/26/24 18:40 Blood Pressure 116/73 1559 Blood Pressure 103/69 1528 Blood Pressure 108/67 1456 Blood Pressure 115/64 1449 Blood Pressure 104/66 1429 Blood Pressure 113/66 1400 Blood Pressure 104/57 1355 BP, HR, EF%: Reviewed (BP and HR WNL) QTc Review QTc: Reviewed (424 from 12/26/23) IV to PO Switch IV Medications: Reviewed (Zosyn, ondansetron, morphine and acetaminophen) Home Meds Home Med List reviewed: Reviewed Relevent Home Meds Not ordered & why?: Jardiance (has order for SSI), furosemide (low BP), lisinopril (low BP), metformin (has order for SSI), psyllium, rosuvast atin and Rybelsus (has order for SSI) Current Meds Current Medication Order Review: Reviewed Pharmacy Antibiotic Review Relevant Labs: WBC 24.20 10^3/uL (4.4-10.8) H 01/27/24 07:10 Temperature 36.7 C 1559 Temperature 37.3 C 1528 Temperature 38.6 C 0516 Pharmacy Antibiotic Activity: Reviewed, no change Comments: Patient is on Zosyn day 1 for cholecystitis. POD #0. WBC increased from 17.04 to 24.2, no cultures currently.
[2024-01-27] MEDS: Insulin Aspart 300 UNITS/3 ML PEN SC (17:18)
[2024-01-27] MEDS: MORPHine 2 MG/ML SYR IVP (18:54)
[2024-01-27] MEDS: Normal Saline Flush 10 ML SYR IVP (18:55)
--- NOTE | 2024-01-27 20:38 | W.ANESPOSTOP ---
Postoperative Evaluation Date, Time and Location Date Performed: 01/27/24 Time Performed: 20:38 Patient Location: Med/Surg (228) Vital Signs Most Recent Imported Vital Signs: Most Recent Vital Signs Temp Pulse Resp BP Pulse Ox 37.2 C 81 20 122/76 96 01/27/24 17:06 01/27/24 17:06 01/27/24 17:06 01/27/24 17:06 01/27/24 17:06 Pain Score Most Recent Pain Score: Currently denying pain Assessment Mental Status: Awake (Alert & Oriented to Patient Baseline) Airway and Respiratory Function: Patent airway with normal (patient baseline) respiratory exam Cardiovascular Function: Hemodynamically Stable Hydration Status: Adequately Hydrated Nausea & Vomiting: No Nausea or Vomiting Pain: Pt. Denies Any Pain Peripheral Nerve Block: Patient did not receive a nerve block
[2024-01-28] MEDS: ACETAMINOPHEN 1,000 MG/100 ML BTL 400 MG IVPB ×2 (04:10→10:26)
[2024-01-28] MEDS: PIPERACILLIN/TAZO 3.375 GM in Normal Saline 50 ML IVPB ×2 (04:54→10:52)
[2024-01-28] MEDS: Heparin 5,000 UNITS/ML VIAL 5000 UNITS SC (05:32)
[2024-01-28 07:22] LABS: ALT 31 U/L (16-63); AST 21 U/L (15-37); Albumin 2.7 g/dL (3.4-5.0); Alkaline Phosphatase 49 U/L (46-116); Anion Gap 7.2 mmol/L (3-11); BUN 9 mg/dL (7-18); Bilirubin, Total 0.72 mg/dL (0.2-1.0); CO2 24.8 mmol/L (21.0-32.0); Calcium 8.7 mg/dL (8.5-10.1); Chloride 102 mmol/L (98-107); Estimated GFR 88.88 (mL/min/1.73m2); Glucose 133 mg/dL (74-106); Potassium 3.9 mmol/L (3.5-5.1); Sodium 134 mmol/L (136-145); Total Protein 6.4 g/dL (6.4-8.2)
[2024-01-28 07:53] VITALS: BP 116/71; PULSE 83; RESP 20; TEMP 37.2; O2SAT 95
[2024-01-28 08:23] LABS: Abs Immature Grans 0.09 10^3/uL (0.0-0.06); Absolute Basophil Count 0.04 10^3/uL (0.0-0.2); Absolute Eosinophil Count 0.05 10^3/uL (0.0-0.7); Absolute Lymphocyte Count 0.63 10^3/uL (1.2-3.4); Absolute Monocyte Count 0.67 10^3/uL (0.1-0.8); Absolute Neutrophil Count 11.93 10^3/uL (1.2-6.7); Basophils % 0.3 %; Eosinophils % 0.4 %; HCT 43.3 % (40.0-50.0); HGB 14.9 g/dL (13.5-17.5); Immature Grans % 0.7 %; Lymphocytes % 4.7 %; MCH 29.2 pg (27.0-33.0); MCHC 34.4 % (32.0-36.0); MCV 85 fL (80-95); Neutrophils % 88.9 %; Platelet Count 197 10^3/uL (130-400); RDW 14.2 % (11.8-14.1); RDW-SD 43.8 fL; WBC 13.42 10^3/uL (4.4-10.8)
[2024-01-28] MEDS: Metoprolol CR 50 MG TABCR PO (08:51)
[2024-01-28] MEDS: Topiramate 50 MG TAB PO (08:51)
[2024-01-28] MEDS: Famotidine 20 MG TAB PO (08:51)
[2024-01-28] MEDS: buPROPion-XL 150 MG TABCR 300 MG PO (08:51)
[2024-01-28] MEDS: clonazePAM 0.5 MG TAB PO ×2 (08:51→12:14)
[2024-01-28] MEDS: Potassium Chloride 20 MEQ TABCR PO (08:51)
[2024-01-28] MEDS: Normal Saline Flush 10 ML SYR IVP (08:52)
--- NOTE | 2024-01-28 13:53 | W.PM.DS.N ---
Date of service: 01/28/24 Time of Service: 13:53 DS: Diagnosis Discharge Diagnosis (1) Cholecystitis: Status: Acute Asessment and Plan: Stable postop day 1 from laparoscopic cholecystectomy. He endorses drastic subjective improvement. His Cornejo catheter has been removed and he can be discharged home. He needs to follow-up with his PCP about his hyponatremia. It is from drinking too much water. Discharge Plan Disposition Patient Disposition: Home Condition: Improving Discharge Details Reason For Visit: Acute Cholecystitis Admit Date/Time: 01/26/24 21:53 Admit Provider: Cameron Montgomery Attending Provider: Cameron Montgomery Primary Care Provider: Lupe Olmedo Hospital Course Hospital Course: 54-year-old man was brought to the hospital with severe abdominal discomfort for about a week or so. He was found to have gangrenous cholecystitis. He was taken the operating room for laparoscopic cholecystectomy. His procedure went well and on the morning of postoperative day 1 he was doing well. His Cornejo catheter was removed and he was given a diet. He was set up for discharge home. His hyponatremia rapidly improved during his hospitalization and it is highly suspicious that this is from too much water intake. He should follow-up with his PCP to discuss further. Home Meds and New Rx's Prescriptions: No Action ammonium lactate 12 % cream 1 applic TP BID Qty: 280 5RF Rx Instructions: apply thin film to both heels and lower shins twice a day (DME) blood-glucose meter Kit 1 ea Miscellaneous DAILY Qty: 1 0RF Rx Instructions: Diabetes to maintain A1C less than 7 and to check daily rosuvastatin 5 mg tablet 5 mg PO DAILY Qty: 90 3RF Rx Instructions: Stop Simvastatin in favor of Rosuvastatin 04/2023 Metamucil 3.4 gram/5.4 gram powder See Rx Instructions PO BID PRN (Reason: constipation) Qty: 660 11RF Rx Instructions: 2 Tblsp PO twice a day PRN; along with fluids to soften stool, prevent bleeding (DME) blood sugar diagnostic Strip 1 ea Miscellaneous DAILY Qty: 100 3RF Rx Instructions: E11.9 to maintain A1C less than 7 , test daily (DME) lancets [OneTouch UltraSoft Lancets] Misc 1 ea Miscellaneous DAILY Qty: 100 3RF Rx Instructions: E11.9 to maintain A1C less than 7 , test daily Jardiance 25 mg tablet 25 mg PO DAILY Qty: 90 3RF famotidine 20 mg tablet 20 mg PO DAILY Qty: 90 3RF furosemide 40 mg tablet 40 mg PO DAILY Qty: 90 3RF lisinopril 40 mg tablet 40 mg PO DAILY Qty: 90 3RF Rx Instructions: to control blood pressure metformin 1,000 mg tablet 1,000 mg PO BID Qty: 180 3RF metoprolol succinate 50 mg tablet extended release 24 hr 50 mg PO BID Qty: 180 3RF Rx Instructions: To lower blood pressure potassium chloride 20 mEq tablet extended release See Rx Instructions .ROUTE .COMPLEX Qty: 90 3RF Dose Instruction: TAKE ONE TABLET BY MOUTH EVERY DAY Rx Instructions: TAKE ONE TABLET BY MOUTH EVERY DAY clonazepam 0.5 mg tablet 0.5 mg PO QID Rx Instructions: ANXIETY topiramate [Topamax] 50 mg tablet 50 mg PO BID olanzapine 20 mg tablet 20 mg PO BID Rx Instructions: AUDREY KEATING APRN bupropion HCl 300 mg tablet extended release 24 hr 300 mg PO QAM Qty: 30 0RF Rx Instructions: Dose decrease 10/2023 courtesy RX until pt returns to psychiatry Rybelsus 3 mg tablet 3 mg PO DAILY Rx Instructions: on HOLD as of 12/30/23 Discharge Instructions Additional Instructions: Incisions: Keep clean and dry but they do not need to be covered. It is okay to shower but no tub bathing for 1 week. You can take off the dressings tomorrow. Activity: As tolerated. There are no restrictions. Return to work, as tolerated in the next few days. If you need a work note call the surgery office. Diet: Regular diet as tolerated Medications: Resume all of your usual/regular home medications Follow-up: Follow-up in the surgery office. Call and schedule appointment to be seen in 2 or 3 weeks from now. Pain control: Take Tylenol, 1000 mg, every 6 hours on a schedule for the next 3 days. You can use ibuprofen in addition to Tylenol. Overall: Symptoms should not be worsening. If you have any difficulty breathing or you have return of symptoms of brought you to the hospital or your pain is otherwise worsening each day and you should call the doctor's office or come into the hospital to be checked out. Activity:: Activity as Tolerated Equipment/Supplies:: No Equipment Needed Diet:: As Tolerated Discharge Orders Discharge Orders: Discharge Order (Routine); Ordered 01/28/24 Ordered By: Cameron Montgomery DS: Summary Time Spent with Patient providing and/or coordinating discharge services: Less than 30 minutes Status at Discharge Functional status at discharge: independent ambulation Overall status at discharge: patient is progressing back to baseline Mental Status: mental status grossly normal and other (Baseline mood is somewhat flat) Speech and Movement: speech and movement normal Mood: other (Baseline mood is somewhat flat) Affect: other (Baseline affect is somewhat flat) Quality:SDOH Health Related Social Needs: No Data to Display Exam Narrative Exam Narrative: General: Nontoxic, comfortable and interactive Neuro: Alert and oriented x 3 Psych: Upbeat mood and affect, good insight and understanding into his condition Abdomen: Soft, no significant tenderness, nondistended. Incisions look perfect. Psych Mental Status: mental status grossly normal and other (Baseline mood is somewhat flat) Speech and Movement: speech and movement normal Mood: other (Baseline mood is somewhat flat) Affect: other (Baseline affect is somewhat flat) DS: Data Vitals/I&O Vitals and I&O: Vital Signs Temperature 99.0 F 01/28/24 07:53 Temperature Source Temporal Artery Scan 01/28/24 07:53 Pulse 83 01/28/24 07:53 Pulse Rhythm Regular 01/28/24 08:10 Pulse 82 01/27/24 14:00 Respiratory Rate 20 01/28/24 07:53 Respiratory Effort Normal, Non-Labored 01/28/24 08:10 Respiratory Depth Normal 01/28/24 08:10 Respiratory Pattern Normal 01/28/24 08:10 Blood Pressure 116/71 01/28/24 07:53 Blood Pressure Mean 82 01/27/24 14:00 Pulse Oximetry 95 01/28/24 07:53 Respiratory End-tidal CO2 32 01/27/24 13:56 Oxygen Delivery Method Room Air 01/28/24 07:53 Oxygen Flow Rate 0 01/28/24 07:53 Pain Level 8 01/27/24 15:59 Comment RN Notified 01/27/24 05:16 Intake & Output 01/27/24 01/28/24 01/28/24 23:59 11:59 23:59 Intake Total 2750 / 4000.000 300 / 300 Output Total 425 / 3075 3300 / 3300 Balance 2325 / 925.000 -3000 / -3000 Intake: IV 2350 / 3600.000 300 / 300 Oral 400 / 400 Output: Urine 425 / 3075 3300 / 3300 Other: Urine Color Yellow Yellow Urine Appearance Clear Sediment Emesis Description None Data Completed and Pending Labs on day of discharge: Labs from last 24 hours 01/28/24 01/28/24 08:15 06:20 WBC 13.42 H RBC 5.10 Hgb 14.9 Hct 43.3 MCV 85 D MCH 29.2 MCHC 34.4 RDW 14.2 H Plt Count 197 MPV 8.0 Immature Gran % 0.7 Neutrophils % 88.9 Lymphocytes % 4.7 Monocytes % 5.0 Eosinophils % 0.4 Basophils % 0.3 Nucleated RBC % 0.0 Absolute Neutrophils 11.93 H Absolute Lymphocytes 0.63 L Absolute Monocytes 0.67 Absolute Eosinophils 0.05 Absolute Basophils 0.04 Sodium 134 L Potassium 3.9 Chloride 102 Carbon Dioxide 24.8 Anion Gap 7.2 BUN 9 Creatinine 1.0 Est GFR (CKD-EPI 2020) 88.88 Glucose 133 H Calcium 8.7 Total Bilirubin 0.72 AST 21 ALT 31 Alkaline Phosphatase 49 Total Protein 6.4 Albumin 2.7 L PFSH All Active Problems (Updated 01/26/24 @ 23:36 by PEDRO Brooks) Cholecystitis (Acute) Hyponatremia (Chronic ~09/2023) Chronic, but with worsened baseline 09/2023; fluid restrix Cardiomyopathy (Chronic 12/27/00) 2023 ECHO: Stable Simple schizophrenia, chronic condition (Chronic 07/28/90) Paranoid type; social anxiety Obstructive sleep apnea syndrome (Acute 12/20/06) SLE[place] [facility] [place] [facility], not using CPAP Morbid obesity (Acute 09/17/11) Hyperlipidemia (Acute 09/17/11) Essential hypertension (Acute 12/01/12) Diabetes mellitus (Chronic 07/29/97) 1998 onset, A1c 8.3 and multiple >6.6 10/2006; on insulin SUMMER 2006 UNTIL 2013 Chronic disease of respiratory system (Acute 05/29/01) RESTRICTIVE LUNG DIS Medical History (Updated 01/26/24 @ 23:36 by PEDRO Brooks) Leg weakness, bilateral BMI 50.0-59.9, adult Perianal fistula (07/07/14) Short of breath on exertion (09/17/11) Peripheral venous insufficiency (02/23/09) Other seborrheic keratosis (02/19/12) facial berumen area L Anal fissure (10/27/12) painful; ? perianal abscess Surgical History (Updated 01/28/24 @ 13:05 by Sarah Maldonado) History of laparoscopic cholecystectomy (~01/2024) Family History Other Lung cancer Social History Smoking/Tobacco Use Status: Former Tobacco Use Smoking risk assessment performed?: Yes Alcohol Intake: never Drug use: Never Substance use type: does not use Adopted: No Household members: family Housing: house Number of Children: 0 Communication Needs: Corrective Lenses current occupation: disabled Pets and animals: Yes Pets and animals: dog(s) How often do you talk on the phone with friends or family?: three or more times per week Panel score (0-1 are the most socially isolated patients): 1 What type of physical activity do you participate in: none Seatbelt use: always Drive intox or ride 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
--- NOTE | 2024-01-28 16:00 | PDOC.CMDIS ---
Date of service: 01/28/24 Time of Service: 16:00 Care Management Discharge Plan Reason for Hospitalization: Acute Cholecystitis Discharge Plan: Devon is discharged home via private vehicle with family. Pt will follow up with community providers and his discharge plan of care as instructed. PCP follow up to address hyponatremia is recommended. No new services are ordered prior to discharge. Patient/Family Education Needs: Review discharge instructions, limitations, medications and plan to follow up with community providers. Discuss ask me three. SDOH Health Related Social Needs: No Data to Display
--- NOTE | 2024-01-28 16:36 | CHAPLAIN ---
Devon was sitting up in bed when I visited. His mom had just left the room. According to ED notes Devon has diabetes and schizophrenia and came to the ED with abdominal pain. He lives at home in [place] with his mom. He provided short answers to questions and did not seem interested in a further conversation. Devon was pleasant. He was discharged home with his mom later in the day.
== END 2024-01-28 15:52 | disposition home or self-care (01) ==
LOC: ER 17:52 → MS 22:48
PROVIDERS: Admitting Provider Student in an Organized Health Care Education/Training Program; Emergency Provider Physician Assistant; PCP Nurse Practitioner Adult Health; Visit Provider Student in an Organized Health Care Education/Training Program
PROC: 0FT44ZZ Resection of Gallbladder, Percutaneous Endoscopic Approach (ICD-10-PCS; CPT 47562; principal; 2024-01-27 11:15)
DX: K80.00 Calculus of gallbladder with acute cholecystitis without obstruction (principal); K82.A1 Gangrene of gallbladder in cholecystitis; Z68.41 Body mass index [BMI] 40.0-44.9, adult; D72.829 Elevated white blood cell count, unspecified; R00.0 Tachycardia, unspecified; I95.9 Hypotension, unspecified; E87.1 Hypo-osmolality and hyponatremia; F20.89 Other schizophrenia; E11.9 Type 2 diabetes mellitus without complications; E78.5 Hyperlipidemia, unspecified; Z91.148 Patient's other noncompliance with medication regimen for other reason; Z79.84 Long term (current) use of oral hypoglycemic drugs; R41.0 Disorientation, unspecified; G47.33 Obstructive sleep apnea (adult) (pediatric); I10 Essential (primary) hypertension; E66.01 Morbid (severe) obesity due to excess calories; I42.9 Cardiomyopathy, unspecified; I87.2 Venous insufficiency (chronic) (peripheral)
CPT/HCPCS: 47562; 00123; 36415; 36416; 74177; 80053; 80307; 82962; 93005; 96361; 96365; 96366; 96367; 96375; 96376; 99222; 99285; 70450; 71260; 80320; 81003; 82140; 83735; 84443; 84484; 85025; 88304; 93010; G0378; J0131; J0665; J1170; J1644; J1815; J1885; J2001; J2270; J2371; J2405; J2543; J2704; J3490

== ENCOUNTER 2024-02-07 02:01 | Outpatient (CLI) | payer MEDICARE, BC, MEDICAID, SELFPAY ==
[2024-02-07 14:18] LABS: Sodium 130 mmol/L (136-145)
== END 2024-02-07 02:02 | disposition home or self-care (01) ==
LOC: LBO 02:02
PROVIDERS: PCP Nurse Practitioner Adult Health; Visit Provider Nurse Practitioner Adult Health
DX: E87.1 Hypo-osmolality and hyponatremia (principal)
CPT/HCPCS: 36415; 84295

== ENCOUNTER → 2024-02-24 14:10 | Outpatient (BNVA) | payer MEDICARE, BC, MEDICAID, SELFPAY | PROVIDERS: PCP Nurse Practitioner Adult Health; Referring Provider Nurse Practitioner Adult Health; Visit Provider Surgery | DX: Z48.815 Encounter for surgical aftercare following surgery on the digestive system (principal); Z90.49 Acquired absence of other specified parts of digestive tract ==

== ENCOUNTER 2024-02-28 02:34 | Outpatient (CLI) | payer MEDICARE, BC, MEDICAID, SELFPAY ==
[2024-02-28 14:43] LABS: Sodium 134 mmol/L (136-145)
== END 2024-02-28 02:35 | disposition home or self-care (01) ==
LOC: LBO 02:35
PROVIDERS: PCP Nurse Practitioner Adult Health; Visit Provider Nurse Practitioner Adult Health
DX: E87.1 Hypo-osmolality and hyponatremia (principal)
CPT/HCPCS: 36415; 84295

== ENCOUNTER 2024-04-03 01:25 | Outpatient (CLI) | payer MEDICARE, BC, MEDICAID, SELFPAY ==
[2024-04-03 13:54] LABS: Sodium 132 mmol/L (136-145)
== END 2024-04-03 01:26 | disposition home or self-care (01) ==
LOC: LBO 01:25
PROVIDERS: PCP Nurse Practitioner Adult Health; Referring Provider Nurse Practitioner Adult Health; Visit Provider Nurse Practitioner Adult Health
DX: E87.1 Hypo-osmolality and hyponatremia (principal)
CPT/HCPCS: 36415; 84295

== ENCOUNTER → 2024-11-30 14:18 | Outpatient (BNVA) | payer MEDICARE, BC, MEDICAID, SELFPAY | PROVIDERS: PCP Nurse Practitioner Adult Health; Referring Provider Nurse Practitioner Adult Health; Visit Provider Podiatrist | DX: E11.8 Type 2 diabetes mellitus with unspecified complications (principal); B35.1 Tinea unguium; L60.3 Nail dystrophy; L84 Corns and callosities; M79.674 Pain in right toe(s) | CPT/HCPCS: 11720; 99214 ==

== ENCOUNTER 2025-02-08 15:20 | Outpatient (REF) | payer MEDICARE, BC, MEDICAID, SELFPAY ==
[2025-02-08 16:59] LABS: Abs Immature Grans 0.07 10^3/uL (0.0-0.06); HCT 47.0 % (40.0-50.0); HGB 16.2 g/dL (13.5-17.5); Immature Grans % 0.9 %; MCH 29.7 pg (27.0-33.0); MCHC 34.5 % (32.0-36.0); MCV 86 fL (80-95); MPV 8.3 fL (8.0-11.0); Platelet Count 275 10^3/uL (130-400); RBC 5.45 10^6/uL (4.36-5.78); RDW 12.6 % (11.8-14.1); RDW-SD 39.5 fL; WBC 7.53 10^3/uL (4.4-10.8)
[2025-02-08 17:33] LABS: ALT 52 U/L (16-63); AST 24 U/L (15-37); Albumin 4.2 g/dL (3.4-5.0); Alkaline Phosphatase 108 U/L (46-116); Anion Gap 10.3 mmol/L (3-11); BUN 10 mg/dL (7-18); Bilirubin, Total 0.4 mg/dL (0.2-1.0); CO2 24.7 mmol/L (21.0-32.0); Calcium 9.1 mg/dL (8.5-10.1); Calculated LDL 13 mg/dL (<100); Chloride 97 mmol/L (98-107); Cholesterol 86 mg/dL (<200); Estimated GFR 100.24 (mL/min/1.73m2); Glucose 110 mg/dL (74-106); HDL Cholesterol 36 mg/dL (>or=40); Potassium 4.0 mmol/L (3.5-5.1); Sodium 132 mmol/L (136-145); TSH (W/Ref FT4) 0.82 uIU/mL (0.36-3.74); Total Protein 7.6 g/dL (6.4-8.2); Triglyceride 185 mg/dL (<150); Vitamin B12 698 pg/mL (193-986)
[2025-02-08 17:35] LABS: Folate > 20.0 ng/mL (8.6-20.0)
[2025-02-09 18:55] LABS: Hepatitis C Ab w Rflx HCV PCR Negative (Negative)
== END 2025-02-08 15:21 | disposition home or self-care (01) ==
LOC: LBN 15:20
PROVIDERS: PCP Nurse Practitioner Adult Health; Visit Provider Nurse Practitioner Adult Health
DX: I10 Essential (primary) hypertension (principal); E78.2 Mixed hyperlipidemia; R53.83 Other fatigue; E87.1 Hypo-osmolality and hyponatremia
CPT/HCPCS: 80053; 80061; 86803; 82607; 82746; 84443; 85025

== ENCOUNTER → 2025-04-06 13:07 | Outpatient (BNVA) | payer MEDICARE, BC, MEDICAID, SELFPAY | PROVIDERS: PCP Nurse Practitioner Adult Health; Referring Provider Nurse Practitioner Adult Health; Visit Provider Podiatrist | DX: L60.3 Nail dystrophy (principal); B35.1 Tinea unguium; L84 Corns and callosities; B07.0 Plantar wart; M79.671 Pain in right foot; M79.672 Pain in left foot; E11.8 Type 2 diabetes mellitus with unspecified complications | CPT/HCPCS: 17110 ==

== ENCOUNTER 2025-04-23 04:03 | Outpatient (CLI) | payer MEDICARE, BC, MEDICAID, SELFPAY ==
[2025-04-23 13:29] LABS: Abs Immature Grans 0.07 10^3/uL (0.0-0.06); HCT 47.9 % (40.0-50.0); HGB 16.7 g/dL (13.5-17.5); Immature Grans % 0.8 %; MCH 30.0 pg (27.0-33.0); MCHC 34.9 % (32.0-36.0); MCV 86 fL (80-95); MPV 8.3 fL (8.0-11.0); Platelet Count 246 10^3/uL (130-400); RBC 5.56 10^6/uL (4.36-5.78); RDW 12.6 % (11.8-14.1); RDW-SD 39.6 fL; WBC 8.50 10^3/uL (4.4-10.8)
[2025-04-23 15:56] LABS: ALT 53 U/L (16-63); AST 30 U/L (15-37); Albumin 4.2 g/dL (3.4-5.0); Alkaline Phosphatase 90 U/L (46-116); Anion Gap 8.1 mmol/L (3-11); BUN 11 mg/dL (7-18); Bilirubin, Direct 0.1 mg/dL (0.0-0.2); Bilirubin, Total 0.4 mg/dL (0.2-1.0); CO2 27.9 mmol/L (21.0-32.0); Calcium 8.7 mg/dL (8.5-10.1); Chloride 93 mmol/L (98-107); Estimated GFR 100.24 (mL/min/1.73m2); Glucose 101 mg/dL (74-106); Potassium 4.1 mmol/L (3.5-5.1); Sodium 129 mmol/L (136-145); Total Protein 7.8 g/dL (6.4-8.2)
== END 2025-04-23 04:04 | disposition home or self-care (01) ==
LOC: LBO 04:04
PROVIDERS: PCP Nurse Practitioner Adult Health; Visit Provider Psychiatry & Neurology Psychiatry
DX: Z79.899 Other long term (current) drug therapy (principal)
CPT/HCPCS: 36415; 80053; 80076; 85025

== ENCOUNTER → 2025-05-18 12:56 | Outpatient (BNVA) | payer MEDICARE, BC, MEDICAID, SELFPAY | PROVIDERS: PCP Nurse Practitioner Adult Health; Referring Provider Nurse Practitioner Adult Health; Visit Provider Podiatrist | DX: L60.3 Nail dystrophy (principal); B35.1 Tinea unguium; B07.9 Viral wart, unspecified; M79.671 Pain in right foot; M79.672 Pain in left foot; L84 Corns and callosities | CPT/HCPCS: 17110 ==